=== PATIENT | male | born 1945 | race Caucasian/White ===

== ENCOUNTER 2023-06-15 21:48 | Emergency (ER) | payer MEDICARE, OTHER, SELFPAY ==
[2023-06-15 21:50] VITALS: BP 140/74
[2023-06-15 22:22] VITALS: BP 140/72
[2023-06-15 22:23] VITALS: BMI 42.2
[2023-06-15] MEDS: NSS 1000 IV ×2 (22:24→23:26)
[2023-06-15 22:31] LABS: % Basophils 0.2 % (0-2); % Eosinophils 0.9 % (0-6); % Immature Granulocytes 0.2 % (0-0.5); % Lymphocytes 9.9 % (20.5-51.1); % Monocytes 7.3 % (1.7-9.3); % Neutrophils 81.5 % (42.2-75.2); Absolute Eosinophils 0.1 10^3/uL (0-0.7); Absolute Lymphocytes 0.9 10^3/uL (1.2-3.4); Absolute Monocytes 0.7 10^3/uL (0.1-0.6); Absolute Neutrophils 7.8 10^3/uL (1.4-6.5); Hematocrit 45.8 % (39.0-52.0); Hemoglobin 15.6 g/dL (13.0-18.0); Mean Corp Hgb Conc. 34.1 g/dL (33.0-37.0); Mean Corpuscular Hgb 27.8 pg (27.0-31.0); Mean Corpuscular Volume 81.5 fL (80.0-94.0); Mean Platelet Volume 10.3 fL (7.4-10.4); Nucleated Red Blood Cells % 0 % (-); Platelet Count 186 10^3/uL (130-400); Red Blood Cell Count 5.62 10^6/uL (4.70-6.10); Red Cell Dist. Width 14.6 % (11.5-14.5); White Blood Cell Count 9.5 10^3/uL (4.8-10.8)
[2023-06-15] MEDS: ZOFRAN 4 MG IV (22:34)
[2023-06-15 22:45] LABS: ALT (SGPT) 25 U/L (0-50); AST (SGOT) 26 U/L (17-59); Albumin 3.8 g/dl (3.5-5.0); Alkaline Phosphatase 81 U/L (38-126); Blood Urea Nitrogen 23 mg/dl (9-20); Carbon Dioxide 25 mmol/L (22-30); Chloride 102 mmol/L (98-107); Estimated Creatinine Clearance 88 ml/min; Glucose 117 mg/dl (70-99); Lipase 57 U/L (23-300); Potassium 4.3 mmol/L (3.5-5.1); Sodium 134 mmol/L (135-145); Total Bilirubin 0.6 mg/dl (0.2-1.3); Total Protein 6.3 g/dl (6.3-8.2); eGFR > 60.00
--- NOTE | 2023-06-15 22:45 | ED.GENMED ---
History of Present Illness
<PRAVIN Mac - Last Filed: 06/15/23 23:00>
General
Chief Complaint: Abdominal Pain
Source: patient
Exam Limitations: none
Time Seen by Provider: 06/15/23 22:31
Nursing documentation reviewed up to this point in time: agreed with
Travel History
Have you had any contact with someone who has COVID-19?: No
Do you have any symptoms of coronavirus? Fever > 100 degrees, chills, cough, shortness of breath, sore throat, loss of taste or smell, muscle aches, or headache?: No
History of Present Illness
History of Present Illness:
patient is a 77 y/o male wit H of obesity presenting with abdominal pain x 2 days. patient states the pain is located in the middle of his abdomen with no radiation. Patient states it is a constant dull pain. Patient admits to taking tyloenol and
zofran which did not help. Patient admits to vomiting that has been going on since the abdominal pain. Patient states he has had 3+ episodes of vomiting that were described as dark brown. Patient admits to started zepbound 2 weeks ago with his last
dose on Saturday. patient states he had some constipation throughout the week for which he took miralax for. Patient states he then had diarrhea for a day but has since resolved. Patient admits to mild W[place] since onset of vomiting.Patient denies Cp,
SOB, blood in stool, fever, chills. denies recent alcohol or smoking in last 48 hrs. Patient denies eating since onset of vomiting.
Past History
<PRAVIN Mac - Last Filed: 06/15/23 23:00>
Past History
ED Past Medical History: None
Social History
Personal:
Review of Systems
<PRAVIN Mac - Last Filed: 06/15/23 23:00>
Review of Systems
EENT: Reports no symptoms
Respiratory: Reports no symptoms
Cardiac: Reports no symptoms
ABD/GI: Reports abdominal pain, nausea, vomiting, diarrhea, constipated and anorexia
: Reports no symptoms
Musculoskeletal: Reports no symptoms
Skin: Reports no symptoms
Neurological: Reports headache
Phy Exam
<PRAVIN Mac - Last Filed: 06/15/23 23:00>
General Physical Exam
General Presentation: well appearing and no apparent distress
General Skin: warm and dry
General Habitus: normal
General Mental: alert
General Hydration: appears well hydrated
ENT Exam
ENT Exam: EOMI, pharynx normal, neck supple and normocephalic
Eye Exam
Eye Exam: PERRL, cornea clear and conjunctiva normal
Cardiovascular Exam
Cardiovascular Exam: regular rate/rhythm, no edema, no murmur and normal peripheral pulses
Pulmonary Exam
Pulmonary Exam: lungs clear, no respiratory distress, no rales, no crackles, no rhonchi, no stridor, no wheezing and no cough
Gastrointestinal Exam
Gastrointestinal Exam: normal bowel sounds, non tender, no pulsatile mass and non distended
Neurological Exam
Neurological Exam: alert, oriented x3, no motor deficits and speech normal
Musculoskeletal Exam
Musculoskeletal Exam: full ROM and no edema
Skin Exam
Skin Exam: normal color, warm/dry, no rash and no petechia
Psychiatric Exam
Psychiatric Exam: normal mood/affect
Course
<ST BubbaMN - Last Filed: 06/15/23 23:00>
Orders/Labs/Results
Orders:
Orders
06/15/23 22:14
IV Insert/Care/Rem.- Treatment PRN
Urinalysis Reflex To Culture Urgent
Date Specimen was Collected: 06/15/23
Time Specimen was Collected: 22:14
06/15/23 22:16
Complete Blood Count/With Diff Urgent
Comprehensive Metabolic Panel Urgent
Lipase Urgent
06/15/23 22:24
0.9% Sodium Chloride 1000 ml [Nss] 1,000 ml IV BOLUS
06/15/23 22:27
Ondansetron Injectable [Zofran] 4 mg .ROUTE .STK-MED ONE
06/15/23 22:30
Ondansetron HCl [Zofran] 4 mg PO NOW STA
06/15/23 22:33
Ondansetron Injectable [Zofran] 4 mg IV NOW STA
06/15/23 23:06
HYDROmorphone [Dilaudid] 0.5 mg IV NOW STA
06/15/23 23:07
CT Abd/pelvis W Iv Cont Urgent
Comment:
Reason For Exam: severe periumbilical abd pain x 30 h, N/V/D
06/15/23 23:26
0.9% Sodium Chloride 1000 ml [Nss] 1,000 ml IV BOLUS
06/15/23 23:33
Lactic Acid Urgent
06/16/23 00:10
Ondansetron Injectable [Zofran] 4 mg .ROUTE .STK-MED ONE
06/16/23 00:11
Ondansetron Injectable [Zofran] 4 mg IV NOW STA
06/16/23 00:43
Metoclopramide [Reglan] 10 mg IV NOW STA
06/16/23 01:26
Dicyclomine HCl [Bentyl] 20 mg IM NOW STA
06/16/23 02:50
Ketorolac [Toradol] 30 mg IV NOW STA
Abnormal Lab Results
06/15/23 06/16/23
22:16 01:33
RDW 14.6 H %
(11.5-14.5)
Absolute Neuts (auto) 7.8 H 10^3/uL
(1.4-6.5)
Absolute Lymphs (auto) 0.9 L 10^3/uL
(1.2-3.4)
Absolute Monos (auto) 0.7 H 10^3/uL
(0.1-0.6)
Neutrophils % 81.5 H %
(42.2-75.2)
Lymphocytes % 9.9 L %
(20.5-51.1)
Sodium 134 L mmol/L
(135-145)
BUN 23 H mg/dl
(9-20)
Glucose 117 H mg/dl
(70-99)
Urine Ketones 2+ A
(Negative)
Urine Bilirubin 1+ A
(Negative)
06/15/23 22:16
06/15/23 22:16
Vital Signs
Initial and Last Documented VS:
Initial Vital Signs
Temp Pulse Resp BP Pulse Ox
98.1 F 72 24 140/74 96
06/15/23 21:50 06/15/23 21:50 06/15/23 21:50 06/15/23 21:50 06/15/23 21:50
Last Documented Vital Signs
Temp Pulse Resp BP Pulse Ox
98.1 F 72 24 137/65 97
06/15/23 21:50 06/15/23 21:50 06/15/23 21:50 06/16/23 02:20 06/16/23 02:31
<Sarai Montanez DO - Last Filed: 06/16/23 03:40>
Orders/Labs/Results
Orders:
Orders
06/15/23 22:14
IV Insert/Care/Rem.- Treatment PRN
Urinalysis Reflex To Culture Urgent
Date Specimen was Collected: 06/15/23
Time Specimen was Collected: 22:14
06/15/23 22:16
Complete Blood Count/With Diff Urgent
Comprehensive Metabolic Panel Urgent
Lipase Urgent
06/15/23 22:24
0.9% Sodium Chloride 1000 ml [Nss] 1,000 ml IV BOLUS
06/15/23 22:27
Ondansetron Injectable [Zofran] 4 mg .ROUTE .[employer]-MED ONE
06/15/23 22:30
Ondansetron HCl [Zofran] 4 mg PO NOW STA
06/15/23 22:33
Ondansetron Injectable [Zofran] 4 mg IV NOW STA
06/15/23 23:06
HYDROmorphone [Dilaudid] 0.5 mg IV NOW STA
06/15/23 23:07
CT Abd/pelvis W Iv Cont Urgent
Comment:
Reason For Exam: severe periumbilical abd pain x 30 h, N/V/D
06/15/23 23:26
0.9% Sodium Chloride 1000 ml [Nss] 1,000 ml IV BOLUS
06/15/23 23:33
Lactic Acid Urgent
06/16/23 00:10
Ondansetron Injectable [Zofran] 4 mg .ROUTE .OROS-MED ONE
06/16/23 00:11
Ondansetron Injectable [Zofran] 4 mg IV NOW STA
06/16/23 00:43
Metoclopramide [Reglan] 10 mg IV NOW STA
06/16/23 01:26
Dicyclomine HCl [Bentyl] 20 mg IM NOW STA
06/16/23 02:50
Ketorolac [Toradol] 30 mg IV NOW STA
Abnormal Lab Results
06/15/23 06/16/23
22:16 01:33
RDW 14.6 H %
(11.5-14.5)
Absolute Neuts (auto) 7.8 H 10^3/uL
(1.4-6.5)
Absolute Lymphs (auto) 0.9 L 10^3/uL
(1.2-3.4)
Absolute Monos (auto) 0.7 H 10^3/uL
(0.1-0.6)
Neutrophils % 81.5 H %
(42.2-75.2)
Lymphocytes % 9.9 L %
(20.5-51.1)
Sodium 134 L mmol/L
(135-145)
BUN 23 H mg/dl
(9-20)
Glucose 117 H mg/dl
(70-99)
Urine Ketones 2+ A
(Negative)
Urine Bilirubin 1+ A
(Negative)
06/15/23 22:16
06/15/23 22:16
Vital Signs
Initial and Last Documented VS:
Initial Vital Signs
Temp Pulse Resp BP Pulse Ox
98.1 F 72 24 140/74 96
06/15/23 21:50 06/15/23 21:50 06/15/23 21:50 06/15/23 21:50 06/15/23 21:50
Last Documented Vital Signs
Temp Pulse Resp BP Pulse Ox
98.1 F 72 24 137/65 97
06/15/23 21:50 06/15/23 21:50 06/15/23 21:50 06/16/23 02:20 06/16/23 02:31
<PRAVIN Mac - Last Filed: 06/15/23 23:00>
MDM/Problems Addressed
Differential Diagnosis Includes:
gastroenteritis
medication SE
SBO
MDM/Problems Addressed:
abdominal pain
<PRAVIN Mac - Last Filed: 06/15/23 23:00>
*Critical Care Note
Total Time (30-74mins, 75-104mins- exclusive of procedures): Not Applicable
<Sarai Montanez DO - Last Filed: 06/16/23 03:40>
*Radiology
Radiology exam reviewed: radiology read reviewed
*Pulse Oximetry
Patient hypoxic: no
ED Attending Note
<PRAVIN Mac - Last Filed: 06/15/23 23:00>
-
Portions of this chart may have been created with voice recognition software.� Occasional wrong word or��sound alike� substitutions may have occurred due to the inherent limitations of voice recognition software.
<Sarai Montanez DO - Last Filed: 06/16/23 03:40>
ED Attending Note
Patient seen and examined by attending physician: Yes
I performed the substantive portion of visit, reviewed & personally made and approve the management plan that is documented in note by myself or REGGIE.: Yes
I performed a history and physical exam of patient and discussed management with resident, I reviewed resident's note and agree with documented findings and plan of care.: Yes
ED Attending Note:
This is a 77-year-old gentleman who resides at home alone, independently. He has history of hypertension, BPH, migraine headaches, morbid obesity and remote history of prostate cancer 2016 treated with external beam radiation and 18-month course of
hormonal therapy. Follows with Dr. Dominguez as with undetectable PSAs thus far until more recently in January PSA trended up minimally to 0.17.
2 weeks ago was started on Zepbound for obesity and he administered his second weekly injection on June 09.
He does admit to moderate constipation with initiation of Zepbound and has been taking MiraLAX and fiber supplement with eventual passage of a very large stool 2 days ago.
Yesterday afternoon he developed mid abdominal pain, moderate in nature that has been constant since then. Mid abdominal pain does not radiate, constant, moderate and dull in nature accompanied with significant nausea with 3 episodes of nonbloody
vomitus yesterday and one episode of vomiting today. He passed 3-4 loose nonbloody stools yesterday. No stools today.
He has not had a fever nor chills. No close contacts with similar symptoms. No recent travel nor recent antibiotic use.
No history of similar episodes in the past.
He does have a known right inguinal hernia but denies inguinal pain nor masses.
No back pain or flank pain, no dysuria and urgency nor hematuria. He has had a markedly decreased appetite since yesterday afternoon, he has been taking small sips of water and clear fluid since yesterday afternoon.
He took 1 dose of oral Zofran today, but then vomited shortly after.
His daily medications include: loratidine, nadolol, flomax, as needed sumatriptan.
GENERAL: 77-year-old obese gentleman appears his stated age, awake and alert, pleasant, appears in moderate distress related to pain. 2 of his sisters are accompanying him.
EYE: anicteric
NECK: Supple, nontender, no meningismus, no significant adenopathy.
ENT: oral mucosa is moist. No rhinorrhea.
CARDIAC: Regular rate and rhythm. no murmur.
LUNGS: Clear breath sounds bilaterally, no acute respiratory distress, no wheezes/rales/rhonchi
ABDOMEN: Obese, soft, nondistended, without focal tenderness, no r/g, no palpable masses, no cvat. Mildly hypoactive bowel sounds.
NEUROLOGICAL: Alert and oriented x3, no focal neuro deficits.
SKIN: Warm and dry, normal color, skin intact. No rash.
MUSCULOSKELETAL: No C/C/E. peripheral pulses are full and equal b/l. No palpable tenderness.
PSYCH: Normal and appropriate interaction.
Concern for acute gastroenteritis, small bowel obstruction, ileus, other consideration is ischemic bowel, adverse reaction to Zepbound (GLP1-Ag)
Labs thus far are unremarkable, normal CBC with normal white blood cell count. Unremarkable chemistries, normal LFTs, normal lipase.
Will check lactic acid.
IV fluids have been initiated and patient has been given an IV dose of Zofran. Will give IV Dilaudid for pain, continue IV fluids and will plan for CT abdomen pelvis with IV contrast.
06/16/2023 0336 AM
Patient has had some intermittent return of nausea and mid abdominal pain but has had no vomiting, no diarrhea, remains afebrile.
CT abdomen and pelvis shows small and large bowels to be decompressed likely related to diarrhea and vomiting. Subtle edema adjacent to the duodenum may reflect duodenitis however patient has had no upper abdominal pain. He has been tolerating
sips of water.
Lactic acid is normal.
Nausea has subsided after an IV dose of Reglan and pain has resolved after an IV dose of Toradol.
He has been reevaluated on multiple occasions and for the most part is sleeping upon reevaluation. He continues with some mild soreness but overall admits to feeling markedly improved.
I suspect a gastroenteritis as cause for symptoms, could this be aggravated by current GLP-1 agonist?
Recommend supportive measures, limiting diet to clear liquids today, slowly advancing as tolerated.
A prescription for Reglan has been provided for as needed nausea, small prescription for Toradol for as needed pain. Recommend [id number] Imodium if diarrhea recurs.
Prompt follow-up with PCP for recheck.
Discharge Plan
Departure
Patient Disposition: Home (Routine Discharge)
Date of Disposition: 06/16/23
Time of Disposition: 03:31
Patient with high blood pressure during this ER visit?: No
Condition: Good
Discharge Problem:
Acute gastroenteritis
Instructions: Clear Liquid Diet, Viral Gastroenteritis, Adult (DC)
Prescriptions:
New
metoclopramide HCl [Reglan] 10 mg tablet
10 mg PO Q6H PRN (Reason: nausea and vomiting) Qty: 10 0RF
ketorolac 10 mg tablet
10 mg PO QID PRN (Reason: pain) Qty: 10 0RF
Referrals:
Chloe Kelley DO [Family Provider] - Call in 1-3 days for appt
Activity Restrictions/Additional Instructions:
Limit diet to clear liquids today, slowly advance to soft bland foods there after.
If diarrhea recurs, you can take over the counter Imodium.
If nausea persists, I recommend you hold the next dose of Zepbound.
Follow up with family doctor this week for recheck.
Interventions
Interventions:
*Risk Screen - Suicide Last Done: 06/15/23 21:50
*General Assessment Last Done: 06/15/23 22:23
*Neglect/Abuse Screening Last Done: 06/15/23 21:50
ED- Fall Risk Assessment Last Done: 06/15/23 23:37
*ED COVID-19 Vaccine History Last Done: 06/15/23 22:23
IX-Cipyce-Jrogecfish Assessment Last Done: 06/15/23 23:37
[2023-06-15 23:00] VITALS: BP 94/65
[2023-06-15] MEDS: DILAUDID 0.5 MG IV (23:20)
[2023-06-15 23:22] VITALS: BP 87/70
[2023-06-15 23:33] VITALS: BP 128/57
--- NOTE | 2023-06-15 23:35 | EDRN ---
Patients BP dropped after pain meds, informed Dr. cates and hung some more fluids on patient, repeat BP is much better
[2023-06-15 23:40] VITALS: BP 126/53
[2023-06-16] VITALS (9 sets, daily range): BP systolic 132–149; BP diastolic 55–66
[2023-06-16 00:06] LABS: Lactic Acid 0.8 mmol/L (0.7-2.0)
[2023-06-16] MEDS: ZOFRAN 4 MG IV (00:11)
--- NOTE | 2023-06-16 00:21 | EDRN ---
Patient was complaining of nausea coming back, meds given for this, call boyd in reach, no other complaints
[2023-06-16] MEDS: REGLAN 10 MG IV (00:49)
[2023-06-16] MEDS: BENTYL 20 MG IM (01:41)
[2023-06-16 01:43] LABS: Urine Albumin Trace (Neg - Trace); Urine Bilirubin 1+ (Negative); Urine Character Clear (Clear); Urine Color Yellow; Urine Glucose Negative (Negative); Urine Ketone 2+ (Negative); Urine Leukocyte Negative (Negative); Urine Nitrite Negative (Negative); Urine Occult Blood Negative (Negative); Urine Specific Gravity 1.015 (<1.030); Urine Urobilinogen Negative (Neg - 1+)
[2023-06-16] MEDS: TORADOL 30 MG IV (02:52)
== END 2023-06-16 04:08 | disposition home or self-care (01) ==
LOC: EMR 21:48
PROVIDERS: EMERGENCY PHYSICIAN Emergency Medicine; FAMILY PHYSICIAN Family Medicine
DX: K52.9 Noninfective gastroenteritis and colitis, unspecified (principal); K40.90 Unilateral inguinal hernia, without obstruction or gangrene, not specified as recurrent; I10 Essential (primary) hypertension; N40.0 Benign prostatic hyperplasia without lower urinary tract symptoms; E66.01 Morbid (severe) obesity due to excess calories; Z85.46 Personal history of malignant neoplasm of prostate
CPT/HCPCS: 99284; 96374; 96375 ×3; 96361 ×2; 96372; 96376; 74177; 80053; 81003; 83605; 83690; 85025; Q9967

== ENCOUNTER 2023-06-17 17:20 | Inpatient (IN) | payer MEDICARE, OTHER, SELFPAY ==
[2023-06-16] VITALS (8 sets, daily range): BP systolic 135–156; BP diastolic 59–84; BMI 42.9; BMI 42.0
--- NOTE | 2023-06-16 11:57 | ED.GENMED ---
History of Present Illness
General
Chief Complaint: Abdominal Pain
Source: patient and other (Sisters who are at bedside)
Exam Limitations: none
Time Seen by Provider: 06/16/23 11:34
Travel History
Have you had any contact with someone who has COVID-19?: No
Do you have any symptoms of coronavirus? Fever > 100 degrees, chills, cough, shortness of breath, sore throat, loss of taste or smell, muscle aches, or headache?: No
History of Present Illness
History of Present Illness:
This patient is a 77-year-old male presents emergency department with abdominal pain associate with nausea and vomiting. The patient states that his symptoms started on Saturday at approximately 2 PM. The pain was not abrupt in onset. The pain is
constant, periumbilical, without radiation, exacerbating, relieving factors. He feels very nauseous and did have some vomiting although the last time he vomited was yesterday. He is only able to tolerate small sips of water at this time. He
denies chest pain, back pain, urinary symptoms. He was feeling constipated earlier in the week, took laxatives, and had a bowel movement. Then, Saturday into Saturday at 1 AM, patient had a few episodes of loose stool without black stool or blood.
Patient recently started a GLP-1 agonist, last dose was 6 days ago. He was seen in the emergency department yesterday, and had extensive workup including labs CT etc. He felt better although not fully comfortable upon discharge.
Past History
Past History
ED Past Medical History: Other (BPH, hernia)
Social History
Tobacco: Non-smoker
Alcohol: None
Drug: None
Phy Exam
Physical Exam
Physical Exam:
GENERAL: Alert , appears uncomfortable
EYE: pupils equal and reactive
NECK: Supple, no significant adenopathy.
ENT: o/p clr, mm dry
CARDIAC: Regular rate and rhythm .
LUNGS: Clear breath sounds bilaterally, no acute respiratory distress, no wheezes/rales/rhonchi
ABDOMEN: Soft, without focal tenderness, no r/g, no cvat
NEUROLOGICAL: Alert and oriented, no focal neuro deficits
SKIN: Warm and dry, skin intact.
MUSCULOSKELETAL: No edema, well perfused.
PSYCH: Normal and appropriate interaction.
Course
Orders/Labs/Results
Orders:
Orders
06/16/23 Lunch
Clear Liquid
At Your Request: Full Participation
Does patient need a safe tray?: No
06/16/23 11:56
Cardiac Monitoring- Treatment ONCE
0.9% Sodium Chloride 1000 ml [Nss] 1,000 ml IV BOLUS
HYDROmorphone [Dilaudid] 1 mg IV NOW STA
Ondansetron Injectable [Zofran] 4 mg IV NOW STA
06/16/23 12:09
Complete Blood Count/No Diff Urgent
Comprehensive Metabolic Panel Urgent
Lipase Urgent
Urinalysis Reflex To Culture Urgent
Date Specimen was Collected: 06/16/23
Time Specimen was Collected: 12:01
06/16/23 13:35
EKG [Electrocardiogram (*1)] Routine
Reason for Study: QTc Monitoring
Code Status As Directed
Resuscitation Status: Full Code
Acetaminophen [Tylenol] 650 mg PO Q4HPRN PRN
Ondansetron Injectable [Zofran] 4 mg IV Q6HPRN PRN
Activity As Directed
Activity Level: As Tolerated
Vital Signs As Directed
Frequency: Per unit guidelines
DX Deep Vein Thrombosis Video Routine
06/16/23 13:37
Admit/Transfer Patient As Directed
Co-Sign Provider:
Level of Care: Observation services
Assign to:: Medical/Surgical
Physician / Group: Logan Ann
Diagnosis: Intractable nausea/vomiting
06/16/23 13:45
0.9% Sodium Chloride 1000 ml [Nss] 1,000 ml IV 125 mls/hr
06/16/23 18:00
Enoxaparin Sodium [Lovenox] 40 mg SC QPM
06/17/23 06:52
Basic Metabolic Panel IN AM
Complete Blood Count/No Diff IN AM
Lipase IN AM
Abnormal Lab Results
06/16/23
12:09
WBC 11.3 H 10^3/uL
(4.8-10.8)
RDW 14.7 H %
(11.5-14.5)
MPV 10.6 H fL
(7.4-10.4)
BUN 25 H mg/dl
(9-20)
Glucose 116 H mg/dl
(70-99)
Total Protein 5.8 L g/dl
(6.3-8.2)
Lipase 588 H U/L
(23-300)
Urine Ketones 2+ A
(Negative)
Urine Bilirubin 1+ A
(Negative)
06/16/23 12:09
06/16/23 12:09
Vital Signs
Initial and Last Documented VS:
Initial Vital Signs
Temp Pulse Resp BP Pulse Ox
98.0 F 60 17 156/84 95
06/16/23 11:07 06/16/23 11:07 06/16/23 11:07 06/16/23 11:07 06/16/23 11:07
Last Documented Vital Signs
Temp Pulse Resp BP Pulse Ox
98.3 F 60 18 133/60 97
06/17/23 15:00 06/17/23 15:00 06/17/23 15:00 06/17/23 15:00 06/17/23 15:00
*Critical Care Note
Total Time (30-74mins, 75-104mins- exclusive of procedures): Not Applicable
Update Note
Update Note:
Patient presents to the Emergency Department with ___abdominal pain nausea and vomiting
Number and Complexity of Problems Addressed at the Encounter
� Chronic conditions affecting care:
� Acute Exacerbation and/or Progression of Chronic Illness:
� Differential Diagnosis includes: But not limited to medication side effect, gastroenteritis, bowel obstruction, etc. etc.
Amount and/or Complexity of Data to be Reviewed and Analyzed
� I performed an independent evaluation of and my interpretation is:
EKG:
CT:
Xrays:
Laboratory Studies: Slight elevation of lipase, dehydration
Other:
� Review of other/old records reveals: CAT scan from yesterday as well as ER chart labs etc. reviewed
� Clinical information was obtained by an independent historian: Sisters who are at bedside
� Prescriptions/Medications Considered but not given:
� Further testing considered but not performed:
Risk of Complications and/or Morbidity or Mortality of Patient Management
� Social determinants of health affecting care:
� Discussion with other providers (PCP, Hospitalists, Consultants, etc):
� Escalation of care including admission/observation vs risk of discharge considered: CT scan from yesterday generally unremarkable and may be consistent with gastroenteritis. No signs of obstruction, acute infection, etc.
On reassessment patient's pain is improved markedly but still present, abdomen nontender. He still feels anorexic, feels that nausea is improved, no active vomiting. Patient's lipase has increased slightly since previous measurement. Strongly
suspect symptoms related to GLP-1 agonist versus gastroenteritis. Dehydration noted. Will d/w hopsitliast.
ED Attending Note
-
Portions of this chart may have been created with voice recognition software.� Occasional wrong word or��sound alike� substitutions may have occurred due to the inherent limitations of voice recognition software.
Discharge Plan
Departure
Patient Disposition: Admit
Date of Disposition: 06/16/23
Time of Disposition: 13:41
Admit to: Med/Surg
Presentation/result/management discussed w/ accepting MD/DO: Hospitalist
Condition: Good
Discharge Problem:
Abdominal pain
Interventions
Interventions:
*Risk Screen - Suicide Last Done: 06/16/23 15:28
*General Assessment Last Done: 06/16/23 12:25
*Neglect/Abuse Screening Last Done: 06/16/23 12:25
ED- Fall Risk Assessment Last Done: 06/16/23 12:25
*ED COVID-19 Vaccine History Last Done: 06/16/23 15:28
*Nursing Disposition Last Done: 06/16/23 15:10
GR-Ajlukc-Cebhahepan Assessment Last Done: 06/16/23 12:25
Discharge Date and Time
Discharge Date/Time: 06/16/23 15:10
[2023-06-16] MEDS: DILAUDID 1 MG IV (12:16)
[2023-06-16] MEDS: NSS 1000 IV ×3 (12:16→23:32)
[2023-06-16] MEDS: ZOFRAN 4 MG IV ×2 (12:16→18:20)
[2023-06-16 12:31] LABS: Hematocrit 45.8 % (39.0-52.0); Hemoglobin 15.4 g/dL (13.0-18.0); Mean Corp Hgb Conc. 33.6 g/dL (33.0-37.0); Mean Corpuscular Hgb 27.7 pg (27.0-31.0); Mean Corpuscular Volume 82.4 fL (80.0-94.0); Mean Platelet Volume 10.6 fL (7.4-10.4); Platelet Count 171 10^3/uL (130-400); Red Blood Cell Count 5.56 10^6/uL (4.70-6.10); Red Cell Dist. Width 14.7 % (11.5-14.5); White Blood Cell Count 11.3 10^3/uL (4.8-10.8)
[2023-06-16 12:37] LABS: Urine Albumin Trace (Neg - Trace); Urine Bilirubin 1+ (Negative); Urine Character Clear (Clear); Urine Color Yellow; Urine Glucose Negative (Negative); Urine Ketone 2+ (Negative); Urine Leukocyte Negative (Negative); Urine Nitrite Negative (Negative); Urine Occult Blood Negative (Negative); Urine Specific Gravity 1.025 (<1.030); Urine Urobilinogen Negative (Neg - 1+)
[2023-06-16 12:47] LABS: ALT (SGPT) 25 U/L (0-50); AST (SGOT) 24 U/L (17-59); Albumin 3.5 g/dl (3.5-5.0); Alkaline Phosphatase 71 U/L (38-126); Blood Urea Nitrogen 25 mg/dl (9-20); Calcium 8.8 mg/dl (8.4-10.2); Carbon Dioxide 25 mmol/L (22-30); Chloride 104 mmol/L (98-107); Glucose 116 mg/dl (70-99); Lipase 588 U/L (23-300); Potassium 4.1 mmol/L (3.5-5.1); Sodium 135 mmol/L (135-145); Total Bilirubin 0.5 mg/dl (0.2-1.3); Total Protein 5.8 g/dl (6.3-8.2); eGFR > 60.00
--- NOTE | 2023-06-16 13:19 | EDRN ---
Dr. Silver informed of elevated lipase (not elevated, normal, yesterday).
--- NOTE | 2023-06-16 13:22 | EDRN ---
Dr Silver in to see pt and informed me pt to be admitted and okay for him to have some ice.
--- NOTE | 2023-06-16 13:28 | EDRN ---
Pt administered small cup of ice w/ spoon and advised to be sparing w/ it depending on how he feels.
--- NOTE | 2023-06-16 13:38 | HPS.HSE ---
Family Physician
-
Family Physician: Chloe Kelley
Chief Complaint
-
Abdominal pain nausea vomiting
History of Present Illness
Patient is a 77-year-old male with no significant past medical history came to ER with new onset of abdominal pain nausea and vomiting. Symptoms were rapid onset on Saturday night with patient having diffuse abdominal pain and bilious vomiting.
Patient came to ER yesterday and CT abdomen pelvis and lab work all was essentially normal. Patient was discharged home on symptomatic care, unfortunately patient symptoms persisted and came back to ER for reevaluation. Repeat laboratory
evaluation today showing patient having lipase elevation suggestive of possible mild pancreatitis. Patient having significant abdominal discomfort requiring to be given IV Dilaudid in ER. Patient also have some complaint of ongoing diarrhea
although last bowel movement was Saturday night. Denies of having any fever or chills
Of note patient had been started on GLP-1 agonist ([place]?) for weight loss and had 2 doses so far. Patient last dose was on Saturday morning this week.
Denies of having any other problems of chest pain/cough/dizziness/syncope/palpitation/dysuria.
Medical History
Past Medical History
Past Medical History: Reports None
Additional Past Medical History:
Obesity
Past Surgical History: Reports None
Social History
Tobacco: Non-smoker
Alcohol: None
Drug: None
Personal:
Living: With Family
Family History
Family History: Not pertinent
Allergies / Home Medications
Allergies reflects when Allergies were last updated in [facility].
Home Medications with original date entered in [facility]
Allergy/Medication List:
Allergies
Allergy/AdvReac Type Severity Reaction Status Date / Time
No Known Allergies Allergy Verified 06/16/23 11:07
Home Medications
ketorolac 10 mg tablet 10 mg PO QID PRN pain #10 tabs 06/16/23
metoclopramide HCl 10 mg tablet (Reglan) 10 mg PO Q6H PRN nausea and vomiting #10 tabs 06/16/23
Review of Systems
-
A 12 point ROS was completed and negative except as noted: Yes
Physical Exam
Vital Signs
Vital Signs
Temp Pulse Resp BP Pulse Ox
98.0 F 68 16 135/64 95
06/16/23 11:07 06/16/23 12:45 06/16/23 12:45 06/16/23 12:22 06/16/23 11:07
Physical Exam
General: Appears in Distress, Pain and Obese
HEENT: Atraumatic; No Oxygen
Respiratory: Clear
Cardiac: S1/S2 and Regular Rhythm; No Murmur or Rub
GI: Soft, Non Distended, Normal Bowel Sounds and Tender (Diffuse all over abdomen); No Organomegaly
Musculoskeletal: No Clubbing, No Cyanosis and No Edema
Skin: No Rash
Neuro: Awake, Alert, Oriented and Nonfocal/grossly intact
Laboratory Results
-
06/16/23 12:09
06/16/23 12:09
Laboratory Results
Total Bilirubin 0.5 mg/dl (0.2-1.3) 06/16/23 12:09
AST 24 U/L (17-59) 06/16/23 12:09
ALT 25 U/L (0-50) 06/16/23 12:09
Alkaline Phosphatase 71 U/L (38-126) 06/16/23 12:09
Lipase 588 U/L (23-300) H 06/16/23 12:09
Data Reviewed
-
CT Scan: Image Personally Visualized and interpreted, Report Reviewed by me, Discussed with Patient and Discussed with Family
Lab Data: Labs Reviewed by me and Discussed with Patient
Impression/Plan
-
1. Acute pancreatitis -mild episode
Intractable nausea and vomiting
-Patient intractable nausea and vomiting starting from Saturday night.
-Lipase elevated to 588
-CT abdomen pelvis done in ER on yesterday ER visit did not show any acute abnormality
-Patient has been started on GLP-1 agonist-got second dose on Saturday earlier in the week
-Suspecting component pancreatitis from GLP-1 agonist
-Maintain patient on IVF/pain medication/antiemetic
-Clear liquid ordered for today
-Repeat lipase ordered to be checked in the morning
2. Morbid obesity
-Patient started taking GLP-1 agonist for weight loss
3. Leukocytosis
-reactive in nature. monitor
4. Diarrhea
-Episode on Saturday night, continue monitoring
-Likely from above-mentioned issues, if further episodes occurs will require stool test
DVT prophylaxis -Lovenox
Full code
Total time spent : 76 mins
I personally saw and examined the patient.
I have reviewed all diagnostic interpretations and treatment plans as written.
Time includes patient management by me, time spent at the patients bedside, time to review lab and imaging results, discussing patient care, documentation in the medical record, and time spent with the family or caregiver and discussing care plan
with RN/Consultants.
[2023-06-16] MEDS: DILAUDID 0.5 MG IV ×2 (14:45→19:10)
--- NOTE | 2023-06-16 15:45 | PTCARENOTE ---
Received pt from ER.Pt awake,alert and oriented x3. Pt c/o mid epigastric pain, medicated with Dilaudid prior to arrival to floor. Pt still c/o 7/10 pain , spoke with MD orders for IV Toradol, medicated per orders. Pt VSS 95% on RA.Pt oriented to
room, call boyd within reach, plan of care ongoing.
[2023-06-16] MEDS: TORADOL 15 MG IV (15:58)
[2023-06-16] MEDS: LOVENOX 40 MG SC (18:20)
[2023-06-16] MEDS: FLOMAX 0.800000000000000044 MG PO (19:40)
[2023-06-16] MEDS: PEPCID 20 MG PO (21:22)
[2023-06-16] MEDS: CORGARD PO (23:17)
--- NOTE | 2023-06-16 23:28 | PTCARENOTE ---
Pts HR ranging from 51-57 on pulse ox BP at 2130 149/59 HR 53 repeated BP at 2312 151/75 HR 51. House BREEDING TECHNICIAN notified order to hold nadolol dose and recheck HR at 0300.
[2023-06-17] MEDS: DILAUDID 0.5 MG IV ×2 (00:31→15:10)
[2023-06-17] MEDS: ZOFRAN 4 MG IV ×2 (01:35→16:05)
[2023-06-17] MEDS: NSS 1000 IV ×3 (06:02→22:12)
[2023-06-17 07:00] VITALS: BP 138/66
[2023-06-17 07:21] LABS: Hematocrit 44.9 % (39.0-52.0); Hemoglobin 14.8 g/dL (13.0-18.0); Mean Corpuscular Hgb 27.6 pg (27.0-31.0); Mean Corpuscular Volume 83.6 fL (80.0-94.0); Mean Platelet Volume 10.8 fL (7.4-10.4); Platelet Count 145 10^3/uL (130-400); Red Blood Cell Count 5.37 10^6/uL (4.70-6.10); White Blood Cell Count 10.4 10^3/uL (4.8-10.8)
[2023-06-17 07:51] LABS: Blood Urea Nitrogen 19 mg/dl (9-20); Calcium 8.2 mg/dl (8.4-10.2); Carbon Dioxide 20 mmol/L (22-30); Chloride 112 mmol/L (98-107); Estimated Creatinine Clearance > 125 ml/min; Glucose 99 mg/dl (70-99); Lipase 65 U/L (23-300); Potassium 4.2 mmol/L (3.5-5.1); Sodium 135 mmol/L (135-145); eGFR > 60.00
--- NOTE | 2023-06-17 08:32 | W.PN.HOSP.TC ---
Today's Communication/Plan
-
Will plan to advance diet tomorrow
Please see below
Assessment / Plan
Assessment / Plan
Physical Exam
General: Not in acute distress
HEENT: Atraumatic
Respiratory: Clear
Cardiac: S1/S2 and Regular Rhythm
GI: Soft, Non Distended, Normal Bowel Sounds. Mild tenderness in central abdomen.
Musculoskeletal: No Cyanosis and No Edema
Skin: Warm. Dry.
Neuro: Awake, Alert, Oriented and Nonfocal/grossly intact

CT Abd/Pelvis with IV contrast (as per radiologist's report):
IMPRESSION:
1. No definite acute process. No free air or free fluid.
2. Decompressed bowel likely related to diarrhea and vomiting. No focal area of abnormality. No obstruction. Subtle edema adjacent to the duodenum may represent mild inflammation. Please correlate with laboratory values.
3. Appendix within normal limits.
4. Large right inguinal hernia containing loops of nonobstructed bowel.
5. Nonobstructed 3 mm calcification in the right kidney.

Assessment/Plan
Periumbilical pain
Intractable N/V
Constipation/Diarrhea
Mildly elevated Lipase (possibly secondary to Zepbound), resolved
�� � Intractable nausea and vomiting
-Patient intractable nausea and vomiting starting from 06/14/23 night.
-Lipase elevated to 588
-CT abdomen pelvis done in ER on ER Visit 06/15/23 did not show any acute abnormality
-Patient has been started on GLP-1 agonist-got second dose on ~6 days prior to presentation
-Suspecting component pancreatitis from GLP-1 agonist
-Maintain patient on IVF/pain medication/antiemetic
-Clear liquid diet
-GI consulted, recommendations appreciated
-Repeat lipase down to normal range
-Patient instructed to follow-up with primary GI at [facility] upon discharge if with further issues.
#Morbid obesity
-Patient started taking GLP-1 agonist for weight loss
#Leukocytosis
-reactive in nature. monitor
#Diarrhea
-Episode on Saturday night, continue monitoring
-Likely from above-mentioned issues, if further episodes occurs will require stool test
DVT prophylaxis -Lovenox
Full code
Anticipated Discharge: 24 - 48 hours
Subjective/Interval History
-
Date of Service: June 17, 2023
Patient was seen and examined. He denied abdominal pain, nausea, vomiting or any other complaints. He reported that he is doing better.
Objective Data
-
Labs:
Laboratory Results
06/17/23
06:52
WBC 10.4
Hgb 14.8
Hct 44.9
Plt Count 145
Sodium 135
Potassium 4.2
Chloride 112 H
Carbon Dioxide 20 L
BUN 19
Creatinine 0.7
Glucose 99
Calcium 8.2 L
Vital Signs:
Vital Signs
Temp Pulse Resp BP Pulse Ox
98 F 64 18 138/66 97
06/17/23 07:00 06/17/23 07:00 06/17/23 07:00 06/17/23 07:00 06/17/23 07:00
I&O
06/16/23 06/17/23 06/18/23
06:59 06:59 06:59
Intake Total 1500 / 1500
Output Total 400 / 400
Balance 1100 / 1100
--- NOTE | 2023-06-17 10:51 | CON.GI ---
Addendum entered and electronically signed by Trini Bañuelos MD 06/17/23 15:42:
I saw and examined the patient.
The AEROSOL SUPERVISOR's note was reviewed and I agree with the note.
Impression/Plan:
Abdominal pain/ N/V/ diarrhea -patient was recently started on Zepbound for weight loss. Likely GI adverse reaction from medication
Mildly elevated Lipase, resolved
CT Abd/Pelvis with IV contrast:
IMPRESSION:
1. � No definite acute process. No free air or free fluid.
2. � Decompressed bowel likely related to diarrhea and vomiting. No focal area of abnormality. No obstruction. Subtle edema adjacent to the duodenum may represent mild inflammation. Please correlate with laboratory values.
3. � Appendix within normal limits.
4. � Large right inguinal hernia containing loops of nonobstructed bowel.
5. � Nonobstructed 3 mm calcification in the right kidney.
plan
-Clear liquid diet
- hold zepbound
- antiemetics PRN
- pain mx as per medical team
- PPI
-Patient instructed to follow-up with primary GI at [facility] upon discharge if with further issues.
Original Note:
Consultation
-
Date/Time Consultation Requested: 06/16/33 0834
Date/Time Consultation Performed: 06/16/33 1000
Requesting Provider: Dr. Watkins
Performing Provider: Dr. Bañuelos/TAMMY Robles
Reason for Consultation: N/V/D, abd pain
Medical History
Chief Complaint / HPI
Chief Complaint: abd pain
History of Present Illness:
77-year-old male with past medical history of obesity, BPH, GERD and hypertension who was recently started on Zepbound 2 weeks ago by his PCP for weight loss presents to the emergency room with nausea, vomiting, diarrhea and abdominal pain. Asked
to evaluate for the same. The patient states that he took his first injection on 06/03/2023. He states that at that time he developed periumbilical abdominal discomfort with an aching. This occurred within 24 hours postinjection. He stopped
eating as much and every day there after it became less. He took his second injection on 06/10/2023 and he had worse symptoms associated with constipation. He started using MiraLAX then by Saturday he started having worsening pain, vomiting and
diarrhea. He came to the emergency room on 06/15/2023 and had labs performed. He had normal LFTs. Normal lipase. He had a CT of the abdomen and pelvis at that time that showed no definite acute process. Decompressed bowel likely related to
diarrhea and vomiting. No focal area of abnormality. No obstruction. Subtle edema adjacent to the duodenum may represent mild inflammation. Appendix within normal limits. Large right inguinal hernia containing loops of nonobstructed bowel.
Nonobstructive 3 mm calcification in the right kidney. The patient was given IV fluids, antiemetics in the form of Zofran Reglan as well as given Bentyl and Toradol. He was discharged to follow-up with his PCP. Because of ongoing symptoms the
patient represented to the emergency department the following day. This time he had a mild leukocytosis of 11.3. This is now 10.4, hemoglobin was 15.4 is now 14.8, platelets are 145 this morning. Sodium is 135, potassium 4.2, BUN 19, creatinine
0.7, glucose 99, calcium 8.2, total bilirubin 0.5, AST 24, ALT 25, alk phos 71, lipase currently 65 down from 588. Patient states that he has not had any further vomiting or diarrhea. His last bowel movement was on Saturday. 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 He is tolerating ice chips. The patient quit smoking 40 years ago. He does not drink any alcohol. He uses Aleve as needed which is very infrequent. His bowel habits prior to this are usually soft formed and
daily. The patient denies any fevers, chills, melena, hematochezia, dysphagia or dyne aphasia. He denies any early satiety or unintentional weight loss. He denies any acholic stools or bilirubinuria.
Past Medical History
Past Medical History: GERD, HTN and Other (BPH)
Past Surgical History: None
Social History
Tobacco: Former Smoker
Alcohol: None
Drug: None
Family History
Family History: Other (No family history of gastrointestinal malignancy or IBD)
Allergies / Home Medications
Allergy/AdvReac Type Severity Reaction Status Date / Time
No Known Allergies Allergy Verified 06/16/23 11:07
Medication Instructions Recorded
docusate sodium 100 mg tablet 100 mg PO HS Constipation 06/16/23
(Stool Softener)
famotidine 20 mg tablet (Pepcid AC) 20 mg PO HS Gastrointestinal Issue 06/16/23
loratadine 10 mg tablet (Claritin) 10 mg PO DAILY Allergies 06/16/23
nadolol 80 mg tablet 80 mg PO HS Blood Pressure 06/16/23
sumatriptan succinate 50 mg tablet 50 mg PO ONCE PRN migraine 06/16/23
tamsulosin 0.4 mg capsule (Flomax) 0.8 mg PO HS Urinary Issue 06/16/23
Review of Systems
-
All other systems: A 12 pt ROS was Negative except as stated above in HPI
Vital Signs
Temp Pulse Resp BP Pulse Ox
98 F 64 18 138/66 97
06/17/23 07:00 06/17/23 07:00 06/17/23 07:00 06/17/23 07:00 06/17/23 07:00
Physical Exam
Exam
General: No Apparent Distress
HEENT: Normocephalic
Respiratory: Clear (Anterior)
Cardiac: Regular Rhythm
GI: Soft, Non Distended, Normal Bowel Sounds and Tender (Mild periumbilical tenderness)
Musculoskeletal: No Edema
Skin: Warm and Dry
Neuro: AO x 3
Results
WBC 10.4 10^3/uL (4.8-10.8) 06/17/23 06:52
Hgb 14.8 g/dL (13.0-18.0) 06/17/23 06:52
Hct 44.9 % (39.0-52.0) 06/17/23 06:52
MCV 83.6 fL (80.0-94.0) 06/17/23 06:52
Plt Count 145 10^3/uL (130-400) 06/17/23 06:52
Sodium 135 mmol/L (135-145) 06/17/23 06:52
Potassium 4.2 mmol/L (3.5-5.1) 06/17/23 06:52
Chloride 112 mmol/L (98-107) H 06/17/23 06:52
Carbon Dioxide 20 mmol/L (22-30) L 06/17/23 06:52
BUN 19 mg/dl (9-20) 06/17/23 06:52
Creatinine 0.7 mg/dL (0.7-1.3) 06/17/23 06:52
Calcium 8.2 mg/dl (8.4-10.2) L 06/17/23 06:52
Total Bilirubin 0.5 mg/dl (0.2-1.3) 06/16/23 12:09
AST 24 U/L (17-59) 06/16/23 12:09
ALT 25 U/L (0-50) 06/16/23 12:09
Alkaline Phosphatase 71 U/L (38-126) 06/16/23 12:09
Lipase 65 U/L (23-300) 06/17/23 06:52
Diagnostic Image Results:
CT Abd/Pelvis with IV contrast:
IMPRESSION:
1. � No definite acute process. No free air or free fluid.
2. � Decompressed bowel likely related to diarrhea and vomiting. No focal area of abnormality. No obstruction. Subtle edema adjacent to the duodenum may represent mild inflammation. Please correlate with laboratory values.
3. � Appendix within normal limits.
4. � Large right inguinal hernia containing loops of nonobstructed bowel.
5. � Nonobstructed 3 mm calcification in the right kidney.
This report agrees with the report provided by [facility].
Electronically signed by Aletha Zuniga MD 06/16/2023 9:27 AM
Prior GI Procedures:
EGD: Never had
Colonoscopy: GI at [facility]. Patient states this was performed a couple years ago. He states this was within normal limits and was told to have a repeat in 10 years.
Assessment / Plan
-
77-year-old male with past medical history of obesity, BPH, GERD and hypertension who was recently started on Zepbound 2 weeks ago by his PCP for weight loss presents to the emergency room with nausea, vomiting, diarrhea and abdominal pain. Asked
to evaluate for the same. He came to the emergency room on 06/15/2023 and had labs performed. He had normal LFTs. Normal lipase. He had a CT of the abdomen and pelvis at that time that showed no definite acute process. Decompressed bowel likely
related to diarrhea and vomiting. No focal area of abnormality. No obstruction. Subtle edema adjacent to the duodenum may represent mild inflammation. Appendix within normal limits. Large right inguinal hernia containing loops of nonobstructed
bowel. Nonobstructive 3 mm calcification in the right kidney. The patient was given IV fluids, antiemetics in the form of Zofran Reglan as well as given Bentyl and Toradol. He was discharged to follow-up with his PCP. Because of ongoing symptoms
the patient represented to the emergency department the following day. This time he had a mild leukocytosis of 11.3. This is now 10.4, hemoglobin was 15.4 is now 14.8, platelets are 145 this morning. Sodium is 135, potassium 4.2, BUN 19,
creatinine 0.7, glucose 99, calcium 8.2, total bilirubin 0.5, AST 24, ALT 25, alk phos 71, lipase currently 65 down from 588. Patient states that he has not had any further vomiting or diarrhea. His last bowel movement was on Saturday. 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 He is tolerating ice chips.
Impression/Plan:
Periumbilical pain
N/V
Constipation/Diarrhea
Mildly elevated Lipase, resolved-> cold have been secondary to vomiting or Zepbound
--> All symptoms correlate to timing of initiation of Zepbound. They would also increase and decrease at the times of redosing/wearing off.
-At this point would recommend discontinuing this medication and follow-up with PCP
-Can trial sips of clears
-Continue famotidine
-Patient instructed to follow-up with primary GI at [facility] upon discharge if with further issues.
Data Reviewed
-
CT Scan: Report Reviewed by me
-
-
Thank you for consultation and allowing me to participate in the patient's care. Please call the insulation helper GI physician during the after hours with any questions or concerns.
--- NOTE | 2023-06-17 11:45 | CM ---
Addendum entered by Jade White 06/17/23 11:56:
Pt is also here as observation, QUIROZ letter explained and copy provided
Original Note:
CM following re: d/c planning
Chart reviewed
Cm met with patient at bedside; IA completed
Pt states he resides alone in a 2SH with 1STE
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
Pt reports no previous VN/SNF hx and the only DME owned is a shower chair
Pt has prescription coverage and rx's are filled at [facility]
Pt PCP-Chloe Kelley
No needs are anticipated once patient is stable
CM will continue to follow patient progress and assist with any needs at d/c as indicated
PLAN; d/c home no needs anticipated
[2023-06-17 15:00] VITALS: BP 133/60
[2023-06-17] MEDS: PROTONIX IV 40 MG IV (16:07)
[2023-06-17] MEDS: NSS (PRESERVATIVE FREE) 10 ML IV (16:07)
[2023-06-17] MEDS: LOVENOX 40 MG SC (17:47)
[2023-06-17] MEDS: CORGARD 80 MG PO (20:19)
[2023-06-17 20:20] VITALS: BP 141/70
[2023-06-17] MEDS: FLOMAX 0.800000000000000044 MG PO (20:21)
[2023-06-17] MEDS: PEPCID 20 MG PO (20:21)
[2023-06-17 23:00] VITALS: BP 124/74
[2023-06-18] MEDS: ZOFRAN 4 MG IV ×3 (01:00→19:24)
[2023-06-18] MEDS: DILAUDID 0.5 MG IV ×2 (01:01→05:07)
[2023-06-18] MEDS: NSS 1000 IV ×2 (07:33→17:20)
[2023-06-18 07:49] VITALS: BP 127/71
[2023-06-18] MEDS: PROTONIX IV 40 MG IV (08:30)
[2023-06-18] MEDS: NSS (PRESERVATIVE FREE) 10 ML IV (08:30)
[2023-06-18 11:23] LABS: Hematocrit 43.4 % (39.0-52.0); Hemoglobin 14.1 g/dL (13.0-18.0); Mean Corp Hgb Conc. 32.5 g/dL (33.0-37.0); Mean Corpuscular Hgb 27.6 pg (27.0-31.0); Mean Corpuscular Volume 85.1 fL (80.0-94.0); Platelet Count 143 10^3/uL (130-400); Red Cell Dist. Width 14.9 % (11.5-14.5); White Blood Cell Count 8.8 10^3/uL (4.8-10.8)
[2023-06-18 11:51] LABS: ALT (SGPT) 25 U/L (0-50); AST (SGOT) 27 U/L (17-59); Albumin 2.9 g/dl (3.5-5.0); Alkaline Phosphatase 53 U/L (38-126); Blood Urea Nitrogen 16 mg/dl (9-20); Calcium 8.6 mg/dl (8.4-10.2); Carbon Dioxide 25 mmol/L (22-30); Chloride 108 mmol/L (98-107); Estimated Creatinine Clearance > 125 ml/min; Glucose 92 mg/dl (70-99); Potassium 4.5 mmol/L (3.5-5.1); Sodium 134 mmol/L (135-145); Total Bilirubin 0.7 mg/dl (0.2-1.3); Total Protein 5.2 g/dl (6.3-8.2); eGFR > 60.00
--- NOTE | 2023-06-18 14:25 | W.PN.GI.CBS2 ---
Today's Communication / Plan
-
ok for diet, ok for d/c if tolerates
Assessment / Plan
-
77-year-old male with past medical history of obesity, BPH, GERD and hypertension who was recently started on Zepbound 2 weeks ago by his PCP for weight loss presents to the emergency room with nausea, vomiting, diarrhea and abdominal pain. Asked
to evaluate for the same. He came to the emergency room on 06/15/2023 and had labs performed. He had normal LFTs. Normal lipase. He had a CT of the abdomen and pelvis at that time that showed no definite acute process. Decompressed bowel likely
related to diarrhea and vomiting. No focal area of abnormality. No obstruction. Subtle edema adjacent to the duodenum may represent mild inflammation. Appendix within normal limits. Large right inguinal hernia containing loops of nonobstructed
bowel. Nonobstructive 3 mm calcification in the right kidney. The patient was given IV fluids, antiemetics in the form of Zofran Reglan as well as given Bentyl and Toradol. He was discharged to follow-up with his PCP. Because of ongoing symptoms
the patient represented to the emergency department the following day. This time he had a mild leukocytosis of 11.3. This is now 10.4, hemoglobin was 15.4 is now 14.8, platelets are 145 this morning. Sodium is 135, potassium 4.2, BUN 19,
creatinine 0.7, glucose 99, calcium 8.2, total bilirubin 0.5, AST 24, ALT 25, alk phos 71, lipase currently 65 down from 588. Patient states that he has not had any further vomiting or diarrhea. His last bowel movement was on Saturday. 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 He is tolerating ice chips.
Pt's nausea has improved, denies vomiting, will have diet today. Ok to d/c home from GI standpoint if he tolerates diet. GI will s/o.
Total Time Spent with Patient (in minutes): 35
Subjective
Subjective
Date of Service: June 18, 2023
nausea feels better, denies vomiting
Objective
Data Reviewed
Laboratory Data:
Laboratory Results
06/18/23 10:45
06/18/23 10:45
Laboratory Results
Total Bilirubin 0.7 mg/dl (0.2-1.3) 06/18/23 10:45
AST 27 U/L (17-59) 06/18/23 10:45
ALT 25 U/L (0-50) 06/18/23 10:45
Alkaline Phosphatase 53 U/L (38-126) 06/18/23 10:45
Lipase 65 U/L (23-300) 06/17/23 06:52
Vital Signs and I&O:
Vital Signs
Temp Pulse Resp BP Pulse Ox
98.0 F 68 16 127/71 94
06/18/23 07:49 06/18/23 07:49 06/18/23 07:49 06/18/23 07:49 06/18/23 08:00
I&O
06/17/23 06/18/23 06/19/23
06:59 06:59 06:59
Intake Total 1500 / 1500 780 / 780
Output Total 400 / 400 600 / 600 100 / 100
Balance 1100 / 1100 180 / 180 -100 / -100
[2023-06-18 15:08] VITALS: BP 140/67
--- NOTE | 2023-06-18 16:33 | W.PN.HOSP.TC ---
Today's Communication/Plan
-
Still not tolerating diet
Will continue to monitor over the next ~24 hours
Assessment / Plan
Assessment / Plan
Physical Exam
General: Not in acute distress
HEENT: Atraumatic
Respiratory: Clear
Cardiac: S1/S2 and Regular Rhythm
GI: Soft, Non Distended, Normal Bowel Sounds. Mild tenderness in central abdomen.
Musculoskeletal: No Cyanosis and No Edema
Skin: Warm. Dry.
Neuro: Awake, Alert, Oriented and Nonfocal/grossly intact

CT Abd/Pelvis with IV contrast (as per radiologist's report):
IMPRESSION:
1. No definite acute process. No free air or free fluid.
2. Decompressed bowel likely related to diarrhea and vomiting. No focal area of abnormality. No obstruction. Subtle edema adjacent to the duodenum may represent mild inflammation. Please correlate with laboratory values.
3. Appendix within normal limits.
4. Large right inguinal hernia containing loops of nonobstructed bowel.
5. Nonobstructed 3 mm calcification in the right kidney.

Assessment/Plan
Periumbilical pain
Intractable N/V
Constipation/Diarrhea
Mildly elevated Lipase (possibly secondary to Zepbound), resolved
�� � Intractable nausea and vomiting
-Patient intractable nausea and vomiting starting from 06/14/23 night.
-Lipase elevated to 588
-CT abdomen pelvis done in ER on ER Visit 06/15/23 did not show any acute abnormality
-Patient has been started on GLP-1 agonist-got second dose on ~6 days prior to presentation
-Suspecting component pancreatitis from GLP-1 agonist
-Maintain patient on IVF/pain medication/antiemetic
-Diet advanced to low fat, low residue
-GI consulted, recommendations appreciated
-Repeat lipase down to normal range
-Patient instructed to follow-up with primary GI at [facility] upon discharge if with further issues.
#Morbid obesity
-Patient started taking GLP-1 agonist for weight loss
#Leukocytosis
-reactive in nature. monitor
#Diarrhea
-Episode on Saturday night, continue monitoring
-Likely from above-mentioned issues, if further episodes occurs will require stool test
DVT prophylaxis -Lovenox
Full code
Anticipated Discharge: 24 - 48 hours
Subjective/Interval History
-
Date of Service: June 18, 2023
Patient was seen and examined. He reported feeling okay, he wasn't really able to tolerate his diet and Zofran, as per patient's nurse.
Objective Data
-
Labs:
Laboratory Results
06/18/23
10:45
WBC 8.8
Hgb 14.1
Hct 43.4
Plt Count 143
Sodium 134 L
Potassium 4.5
Chloride 108 H
Carbon Dioxide 25
BUN 16
Creatinine 0.7
Glucose 92
Calcium 8.6
Total Bilirubin 0.7
AST 27
ALT 25
Alkaline Phosphatase 53
Vital Signs:
Vital Signs
Temp Pulse Resp BP Pulse Ox
98.5 F 56 16 140/67 97
06/18/23 15:08 06/18/23 15:08 06/18/23 15:08 06/18/23 15:08 06/18/23 15:08
I&O
06/17/23 06/18/23 06/19/23
06:59 06:59 06:59
Intake Total 1500 / 1500 780 / 780
Output Total 400 / 400 600 / 600 100 / 100
Balance 1100 / 1100 180 / 180 -100 / -100
[2023-06-18] MEDS: NSS IV (17:13)
[2023-06-18] MEDS: LOVENOX 40 MG SC (17:20)
[2023-06-18] MEDS: FLOMAX 0.800000000000000044 MG PO (20:56)
[2023-06-18] MEDS: CORGARD 80 MG PO (20:58)
[2023-06-18] MEDS: PEPCID 20 MG PO (20:59)
[2023-06-18 23:46] VITALS: BP 138/65
[2023-06-19] MEDS: NSS 1000 IV ×2 (00:47→08:15)
--- NOTE | 2023-06-19 03:34 | DOWNTIME ---
There was a [facility] Client [facility] Downtime on 06/19/2023 from 0100 to 06/19/2023 at 0322. Downtime documentation of patient's care, including medication administrations, has been reconciled in the electronic record per guidelines. Refer to the
patient's paper chart under the miscellaneous tab to see printed paper medication records and downtime forms.
[2023-06-19] MEDS: DILAUDID 0.5 MG IV (06:06)
--- NOTE | 2023-06-19 06:39 | PTCARENOTE ---
Abnormal EKG this a.m. Patient asymptomatic. SR. MANAGER made aware of EKG via tiger text. Received dilaudid for c/o abdominal pain. No n/v this shift. Plan of care continues. Call boyd in reach.
[2023-06-19 07:40] VITALS: BP 133/78
[2023-06-19] MEDS: PROTONIX IV 40 MG IV (07:48)
[2023-06-19] MEDS: NSS (PRESERVATIVE FREE) 10 ML IV (07:49)
--- NOTE | 2023-06-19 14:36 | W.PN.HOSP.TC ---
Today's Communication/Plan
-
Discharge today
Assessment / Plan
Assessment / Plan
Physical Exam
General: Not in acute distress
HEENT: Atraumatic
Respiratory: Clear
Cardiac: S1/S2 and Regular Rhythm
GI: Soft, Non Distended, Normal Bowel Sounds. Mild tenderness in central abdomen.
Musculoskeletal: No Cyanosis and No Edema
Skin: Warm. Dry.
Neuro: Awake, Alert, Oriented and Nonfocal/grossly intact

CT Abd/Pelvis with IV contrast (as per radiologist's report):
IMPRESSION:
1. No definite acute process. No free air or free fluid.
2. Decompressed bowel likely related to diarrhea and vomiting. No focal area of abnormality. No obstruction. Subtle edema adjacent to the duodenum may represent mild inflammation. Please correlate with laboratory values.
3. Appendix within normal limits.
4. Large right inguinal hernia containing loops of nonobstructed bowel.
5. Nonobstructed 3 mm calcification in the right kidney.

Assessment/Plan
Periumbilical pain
Intractable Nausea/Vomiting
Constipation/Diarrhea
Mildly elevated Lipase (possibly secondary to Zepbound), resolved
-Patient intractable nausea and vomiting starting from 06/14/23 night.
-Lipase elevated to 588
-CT abdomen pelvis done in ER on ER Visit 06/15/23 did not show any acute abnormality
-Patient has been started on GLP-1 agonist-got second dose on ~6 days prior to presentation
-Suspecting component pancreatitis from GLP-1 agonist
-Maintain patient on IVF/pain medication/antiemetic
-Diet advanced to low fat, low residue -- continue on discharge
-GI consulted, recommendations appreciated
-Repeat lipase down to normal range
-PPI for 2 weeks
-Zofran PRN
-Patient instructed to follow-up with primary GI at [facility] upon discharge if with further issues.
#Morbid obesity
-Patient started taking GLP-1 agonist for weight loss
Stop GLP-1 agonist
#Leukocytosis
-reactive in nature. monitor
#Diarrhea
-Episode on Saturday night, continue monitoring
-Likely from above-mentioned issues, if further episodes occurs will require stool test
DVT prophylaxis -Lovenox
Full code
More than 30 minutes spent in discharge including
Final examination of the patient
Summarizing hospital stay
Instructions for continuing care to all relevant caregivers
Preparation of discharge records, prescriptions, and referral forms
Total time spent (in minutes): 35
Anticipated Discharge: Today
Subjective/Interval History
-
Date of Service: June 19, 2023
Patient was seen and examined. He reported that his nausea is better and he is now able to tolerate a diet.
Objective Data
-
Vital Signs:
Vital Signs
Temp Pulse Resp BP Pulse Ox
98.5 F 56 20 133/78 95
06/19/23 07:40 06/19/23 07:40 06/19/23 07:40 06/19/23 07:40 06/19/23 08:00
I&O
06/18/23 06/19/23 06/20/23
06:59 06:59 06:59
Intake Total 780 / 780 1979 / 1979
Output Total 600 / 600 1100 / 1100
Balance 180 / 180 880 / 880
[2023-06-19 15:30] VITALS: BP 158/79
--- NOTE | 2023-06-19 16:43 | W.DS.TRANS ---
DC Summary - [employer]
-
Discharge Instructions:
Discharge Diagnosis/Procedures Large right inguinal hernia with loops of non-
obstructed bowel
Non-obstructed 3 mm calcification in the right
kidney
Periumbilical pain
Intractable Nausea/Vomiting
Constipation/Diarrhea
Mildly elevated Lipase (possibly secondary to
Zepbound), resolved
Morbid obesity
Leukocytosis
Diarrhea
Diet Low Fat,Low Residue,As tolerated
Activity As tolerated
Blood Work Recheck your CBC and BMP with your primary care
provider in the next 2 to 3 days
Instructions: Ondansetron
Stand-Alone Forms:
Changes to Home Medications: Yes
Discharge Medications:
DC Medications w/original date entered in [employer]
docusate sodium 100 mg tablet (Stool Softener) 100 mg PO HS Constipation 06/16/23
famotidine 20 mg tablet (Pepcid AC) 20 mg PO HS Gastrointestinal Issue 06/16/23
loratadine 10 mg tablet (Claritin) 10 mg PO DAILY Allergies 06/16/23
nadolol 80 mg tablet 80 mg PO HS Blood Pressure 06/16/23
sumatriptan succinate 50 mg tablet 50 mg PO ONCE PRN migraine 06/16/23
tamsulosin 0.4 mg capsule (Flomax) 0.8 mg PO HS Urinary Issue 06/16/23
ondansetron 4 mg disintegrating tablet 4 mg PO [id number] PRN nausea and vomiting #10 tabs 06/19/23
pantoprazole 40 mg tablet,delayed release (Protonix) 40 mg PO DAILY #14 tabs 06/19/23
Home Medication Changes
Ondansetron is new
Protonix is new
Pending Results: No
Total time spent discharging patient (in min): 35
--- NOTE | 2023-06-20 09:00 | CM ---
CM following re: d/c planning
Chart reviewed
Pt is medically stable for d/c
Pt to f/u with GI at [facility] and continue on low fat & low residue diet
No additional d/c needs noted
PLAN; d/c home no needs
--- NOTE | 2023-06-22 10:17 | W.DCSUMMARY ---
Discharge Summary
Discharge Data
Date of Admission: 06/16/23
Date of Discharge: 06/19/23
Total time spent discharging patient (in min): 35
-
Pending Results: No
Hospital Course
77-year-old male came to the emergency room with new onset of abdominal pain nausea and vomiting. Patient had come to the emergency room the day prior and CT abdomen pelvis and lab work all were essentially normal. Patient was discharged home on
symptomatic care, unfortunately patient symptoms persisted and he returned to the emergency room for re-evaluation. Repeat laboratory evaluation today showing patient having lipase of 588 suggestive of possible developing pancreatitis. Patient was
recently started on a GLP-1 agonist medication. Gastroenterology was consulted and recommended restarting a diet with clear liquid diet and holding patient's Zepbound; their impression was that patient's symptoms were from recently started Zepbound.
Patient was gradually able to tolerate a diet and was stable for discharge home. He would follow-up with his surgeons about following-up for his inguinal hernias.
Discharge Plan
-
Patient Disposition: Home (Routine Discharge)
Discharge Diagnosis/Procedures: Large right inguinal hernia with loops of non-obstructed bowel
Non-obstructed 3 mm calcification in the right kidney
Periumbilical pain
Intractable Nausea/Vomiting
Constipation/Diarrhea
Mildly elevated Lipase (possibly secondary to Zepbound), resolved
Morbid obesity
Leukocytosis
Diarrhea
Condition: Fair
Diet: As tolerated, Low Fat and Low Residue
Activity: As tolerated
Blood Work: Recheck your CBC and BMP with your primary care provider in the next 2 to 3 days
Activity Restrictions/Additional Instructions:
-You need to closely follow-up with your primary care provider as well as your cloth seconds sorter at [facility] and review your medication list with them.
-Please follow-up with gastroenterology (referral placed) to see whether you should continue taking a longer duration of Protonix
-Please carefully read the handout on Ondansetron and its possible side effects, including arrhythmias and QTc prolongation --- you can discuss this further with your PCP
Instructions: Ondansetron
Referrals:
Chloe Kelley DO [Family Provider] - in one to two days (Needs repeat CBC and CMP)
Vinh Huerta MD [Active] - in one to two weeks (Hospital follow-up)
Additional Discharge Medication Instructions: Ondansetron is new
Protonix is new
Prescriptions:
New
ondansetron 4 mg tablet,disintegrating
4 mg PO [id number] PRN (Reason: nausea and vomiting) Qty: 10 0RF
pantoprazole [Protonix] 40 mg tablet,delayed release (DR/EC)
40 mg PO DAILY Qty: 14 0RF
Continued
nadolol 80 mg Tablet
80 mg PO HS
sumatriptan succinate 50 mg Tablet
50 mg PO ONCE PRN (Reason: migraine)
famotidine [Pepcid AC] 20 mg Tablet
20 mg PO HS
tamsulosin [Flomax] 0.4 mg Capsule
0.8 mg PO HS
docusate sodium [Stool Softener] 100 mg Tablet
100 mg PO HS
loratadine [Claritin] 10 mg Tablet
10 mg PO DAILY
Discharge Orders:
Discharge Patient (As Directed); Ordered 06/19/23
Ordered By: Manfred Watkins
Discharge Date and Time
Discharge Date/Time: 06/19/23 17:17
Print Language: BOLIVIAN
== END 2023-06-19 17:17 | disposition home or self-care (01) | DRG 439 ==
LOC: 4 EAST ACU 17:20
PROVIDERS: ADMITTING PHYSICIAN Hospitalist; ATTENDING PHYSICIAN Hospitalist; CONSULT PHYSICIAN Internal Medicine Gastroenterology; EMERGENCY PHYSICIAN Emergency Medicine; FAMILY PHYSICIAN Family Medicine
DX: K85.90 Acute pancreatitis without necrosis or infection, unspecified (principal); Z68.41 Body mass index [BMI] 40.0-44.9, adult; E66.01 Morbid (severe) obesity due to excess calories; K21.9 Gastro-esophageal reflux disease without esophagitis; I10 Essential (primary) hypertension; K40.90 Unilateral inguinal hernia, without obstruction or gangrene, not specified as recurrent; N40.0 Benign prostatic hyperplasia without lower urinary tract symptoms; R74.8 Abnormal levels of other serum enzymes; T44.4X5A Adverse effect of predominantly alpha-adrenoreceptor agonists, initial encounter; Z87.891 Personal history of nicotine dependence
CPT/HCPCS: 74177; 80048; 80053; 81003; 83605; 83690; 85025; 85027; 93005; 96361; 96372; 96374; 96375; 96376; 99284; 99285; Q9967

== ENCOUNTER 2023-07-07 11:26 | Emergency (ER) | payer MEDICARE, OTHER, SELFPAY ==
[2023-07-07 11:28] VITALS: BP 137/69
--- NOTE | 2023-07-07 11:52 | ED.GENMED ---
History of Present Illness
General
Chief Complaint: Abdominal Pain
Source: patient
Time Seen by Provider: 07/07/23 11:51
Travel History
Have you had any contact with someone who has COVID-19?: No
Do you have any symptoms of coronavirus? Fever > 100 degrees, chills, cough, shortness of breath, sore throat, loss of taste or smell, muscle aches, or headache?: No
History of Present Illness
History of Present Illness:
78-year-old male with past medical history of previous prostate cancer, GERD, migraine headaches, recent diagnosis of pancreatitis thought to be related to initiation of a GLP-1 inhibitor for weight loss admitted and discharged within the last 2
weeks presenting back to the emergency department for recurrence of symptoms including generalized abdominal pain but worse periumbilically, nausea and vomiting with decreased p.o. intake over the last 2 days. Patient states symptoms really started
this past Saturday but got acutely worse Saturday and Saturday. He denies any fevers, chills, rigors no known history of gallstones. Patient denies any alcohol use. He has no other concerns at this time.
Past History
Past History
ED Past Medical History: Cancer and Other (BPH, hernia)
Social History
Tobacco: Non-smoker
Alcohol: None
Drug: None
Personal:
Living: alone
Review of Systems
Review of Systems
All Other Systems: ROS reviewed and negative except as documented in HPI and ROS
Phy Exam
Physical Exam
Physical Exam:
GENERAL: Alert , in no apparent distress but does appear uncomfortable
EYE: clear conjunctiva b/l
HEAD: NCAT
ENT: o/p clr, mmm.
CARDIAC: Regular rate and rhythm .
LUNGS: Clear breath sounds bilaterally, no acute respiratory distress, no wheezes/rales/rhonchi
ABDOMEN: Soft, tenderness periumbilically, no r/g, no cvat, negative Chi sign, no tenderness at McBurney's point
NEUROLOGICAL: Alert and oriented
SKIN: Warm and dry, skin intact.
MUSCULOSKELETAL: No edema, well perfused.
PSYCH: Normal and appropriate interaction.
Scores
Heart Failure Risk
Heart Failure Risk Score: Not Applicable
Heart Score for Chest Pain Patients
STEMI patient?: Not applicable
Withdrawal Assessment of Alcohol
Withdrawal Assessment Completed?: Not applicable
Course
Orders/Labs/Results
Orders:
Orders
07/07/23 12:02
0.9% Sodium Chloride 1000 ml [Nss] 1,000 ml IV BOLUS
HYDROmorphone [Dilaudid] 0.5 mg IV NOW STA
Ondansetron Injectable [Zofran] 4 mg IV NOW STA
07/07/23 12:36
Complete Blood Count/With Diff Urgent
Comprehensive Metabolic Panel Urgent
Lipase Urgent
07/07/23 12:51
Urinalysis Reflex To Culture Urgent
Date Specimen was Collected: 07/07/23
Time Specimen was Collected: 12:49
07/07/23 14:10
0.9% Sodium Chloride 1000 ml [Nss] 1,000 ml IV BOLUS
Abnormal Lab Results
07/07/23 07/07/23
12:36 12:51
RDW 14.6 H %
(11.5-14.5)
MPV 10.5 H fL
(7.4-10.4)
Absolute Neuts (auto) 7.0 H 10^3/uL
(1.4-6.5)
Absolute Lymphs (auto) 1.1 L 10^3/uL
(1.2-3.4)
Neutrophils % 77.5 H %
(42.2-75.2)
Lymphocytes % 12.3 L %
(20.5-51.1)
Glucose 113 H mg/dl
(70-99)
Total Protein 5.6 L g/dl
(6.3-8.2)
Albumin 3.2 L g/dl
(3.5-5.0)
Urine Bilirubin 1+ A
(Negative)
07/07/23 12:36
07/07/23 12:36
Vital Signs
Initial and Last Documented VS:
Initial Vital Signs
Temp Pulse Resp BP Pulse Ox
97.9 F 66 16 137/69 96
07/07/23 11:28 07/07/23 11:28 07/07/23 11:28 07/07/23 11:28 07/07/23 11:28
Last Documented Vital Signs
Temp Pulse Resp BP Pulse Ox
98.3 F 66 16 138/67 95
07/07/23 16:14 07/07/23 11:28 07/07/23 11:28 07/07/23 15:00 07/07/23 15:49
MDM/Problems Addressed
Differential Diagnosis Includes:
Recurrence of pancreatitis, GERD/gastritis, gallstones, gastroenteritis
MDM/Problems Addressed:
78-year-old male presenting emergency department for evaluation of abdominal pain, nausea and vomiting with symptoms similar to that of when he was admitted for pancreatitis. At that time it was thought to be related to Zepbound which was
prescribed to the patient for weight loss by his primary care provider. Patient notes that while his symptoms were not fully resolved they were improved to the point where he was able to tolerate a brat diet. Acutely worse since Saturday. He has
been taking Zofran and Reglan intermittently at home with minimal relief. Last dose of Reglan was at 6 AM this morning. Will check labs and treat with half milligram of Dilaudid and Zofran which patient notes helped him while he was inpatient as
well as IV fluids. Reassessment following.
*Pulse Oximetry
Patient hypoxic: no
*Critical Care Note
Total Time (30-74mins, 75-104mins- exclusive of procedures): Not Applicable
Data Reviewed
Review of Other/Old Records Reveals: Labs, Records and Discharge Summary
Source: patient
Patient Management
Discussion with other providers: PCP
Escalation/DeEscalation of care consider admission/obs:
On multiple reevaluations patient pain is improved and he is in no acute distress. He was able to tolerate p.o. without much difficulty. Patient did ask me about potentially staying overnight in the hospital however I explained to him that his
pain is improved, his labs are all reassuring and he is in no acute distress and that he can continue to attempt to manage his symptoms at home. I did notify patient's primary care provider about his visit to the emergency department today and
encouraged the patient to contact the primary to help with follow-up. Patient is aware of return precautions emergency department but otherwise stable for discharge home.
ED Attending Note
-
Portions of this chart may have been created with voice recognition software.� Occasional wrong word or��sound alike� substitutions may have occurred due to the inherent limitations of voice recognition software.
Discharge Plan
Departure
Patient Disposition: Home (Routine Discharge)
Date of Disposition: 07/07/23
Time of Disposition: 15:48
Patient with high blood pressure during this ER visit?: No
Discharge Problem:
Abdominal pain, Nausea
Instructions: Abdominal Pain
Prescriptions:
New
oxycodone 5 mg tablet
5 mg PO BID PRN (Reason: Pain) Qty: 6 0RF
No Action
nadolol 80 mg Tablet
80 mg PO HS
sumatriptan succinate 50 mg Tablet
50 mg PO ONCE PRN (Reason: migraine)
famotidine [Pepcid AC] 20 mg Tablet
20 mg PO HS
tamsulosin [Flomax] 0.4 mg Capsule
0.8 mg PO HS
docusate sodium [Stool Softener] 100 mg Tablet
100 mg PO HS
loratadine [Claritin] 10 mg Tablet
10 mg PO DAILY
ondansetron 4 mg tablet,disintegrating
4 mg PO [id number] PRN (Reason: nausea and vomiting) Qty: 10 0RF
pantoprazole [Protonix] 40 mg tablet,delayed release (DR/EC)
40 mg PO DAILY Qty: 14 0RF
Referrals:
Chloe Kelley DO [Family Provider] -
Interventions
Interventions:
*Risk Screen - Suicide Last Done: 07/07/23 11:28
*General Assessment Last Done: 07/07/23 11:28
*Neglect/Abuse Screening Last Done: 07/07/23 11:28
ED- Fall Risk Assessment Last Done: 07/07/23 12:00
*ED COVID-19 Vaccine History Last Done: 07/07/23 11:28
*Nursing Disposition Last Done: 07/07/23 16:15
IZ-Ecvctt-Trhuyllqea Assessment Last Done: 07/07/23 12:00
Discharge Date and Time
Discharge Date/Time: 07/07/23 16:16
Print Language: GREEK
[2023-07-07] MEDS: DILAUDID 0.5 MG IV (12:18)
[2023-07-07] MEDS: ZOFRAN 4 MG IV (12:18)
[2023-07-07] MEDS: NSS 1000 IV ×2 (12:19→14:14)
[2023-07-07 12:21] VITALS: BP 126/67
[2023-07-07 12:44] LABS: % Basophils 0.4 % (0-2); % Eosinophils 3.2 % (0-6); % Immature Granulocytes 0.3 % (0-0.5); % Lymphocytes 12.3 % (20.5-51.1); % Monocytes 6.3 % (1.7-9.3); % Neutrophils 77.5 % (42.2-75.2); Absolute Eosinophils 0.3 10^3/uL (0-0.7); Absolute Lymphocytes 1.1 10^3/uL (1.2-3.4); Absolute Monocytes 0.6 10^3/uL (0.1-0.6); Hemoglobin 13.6 g/dL (13.0-18.0); Mean Corpuscular Hgb 27.7 pg (27.0-31.0); Mean Corpuscular Volume 81.5 fL (80.0-94.0); Mean Platelet Volume 10.5 fL (7.4-10.4); Nucleated Red Blood Cells % 0 % (-); Platelet Count 203 10^3/uL (130-400); Red Blood Cell Count 4.91 10^6/uL (4.70-6.10); Red Cell Dist. Width 14.6 % (11.5-14.5)
[2023-07-07 12:58] LABS: ALT (SGPT) 22 U/L (0-50); AST (SGOT) 19 U/L (17-59); Albumin 3.2 g/dl (3.5-5.0); Alkaline Phosphatase 78 U/L (38-126); Blood Urea Nitrogen 17 mg/dl (9-20); Calcium 9.4 mg/dl (8.4-10.2); Carbon Dioxide 25 mmol/L (22-30); Chloride 104 mmol/L (98-107); Glucose 113 mg/dl (70-99); Lipase 86 U/L (23-300); Potassium 4.3 mmol/L (3.5-5.1); Sodium 135 mmol/L (135-145); Total Bilirubin 0.5 mg/dl (0.2-1.3); Total Protein 5.6 g/dl (6.3-8.2); eGFR > 60.00
[2023-07-07 13:00] VITALS: BP 123/65
[2023-07-07 13:04] LABS: Urine Albumin Negative (Neg - Trace); Urine Bilirubin 1+ (Negative); Urine Character Clear (Clear); Urine Color Yellow; Urine Glucose Negative (Negative); Urine Ketone Negative (Negative); Urine Leukocyte Negative (Negative); Urine Nitrite Negative (Negative); Urine Occult Blood Negative (Negative); Urine Urobilinogen Negative (Neg - 1+)
[2023-07-07 14:00] VITALS: BP 123/64
[2023-07-07 15:00] VITALS: BP 138/67
== END 2023-07-07 16:16 | disposition home or self-care (01) ==
LOC: EMR 11:26
PROVIDERS: Physician Assistant Medical; EMERGENCY PHYSICIAN Emergency Medicine; FAMILY PHYSICIAN Family Medicine
DX: R10.84 Generalized abdominal pain (principal); R11.0 Nausea; K21.9 Gastro-esophageal reflux disease without esophagitis; N40.0 Benign prostatic hyperplasia without lower urinary tract symptoms; Z85.46 Personal history of malignant neoplasm of prostate; Z87.19 Personal history of other diseases of the digestive system
CPT/HCPCS: 99283; 96374; 96375; 96361; 80053; 81003; 83690; 85025

== ENCOUNTER → 2023-07-10 14:32 | Outpatient (REF) | payer MEDICARE, OTHER, SELFPAY | LOC: RAD 14:32 | PROVIDERS: ATTENDING PHYSICIAN Family Medicine | DX: R10.84 Generalized abdominal pain (principal); Z09 Encounter for follow-up examination after completed treatment for conditions other than malignant neoplasm; K85.30 Drug induced acute pancreatitis without necrosis or infection | CPT/HCPCS: 74177; Q9967 ==

== ENCOUNTER 2023-07-31 10:16 | Emergency (ER) | payer MEDICARE, OTHER, SELFPAY ==
[2023-07-31 10:20] VITALS: BP 97/69
[2023-07-31 11:08] VITALS: BP 142/83
[2023-07-31 11:17] LABS: % Basophils 0.9 % (0-2); % Eosinophils 5.2 % (0-6); % Immature Granulocytes 0.3 % (0-0.5); % Lymphocytes 13.9 % (20.5-51.1); % Monocytes 5.7 % (1.7-9.3); Absolute Basophils 0.1 10^3/uL (0-0.2); Absolute Eosinophils 0.6 10^3/uL (0-0.7); Absolute Lymphocytes 1.6 10^3/uL (1.2-3.4); Absolute Monocytes 0.7 10^3/uL (0.1-0.6); Absolute Neutrophils 8.7 10^3/uL (1.4-6.5); Hematocrit 46.7 % (39.0-52.0); Hemoglobin 15.6 g/dL (13.0-18.0); Mean Corp Hgb Conc. 33.4 g/dL (33.0-37.0); Mean Corpuscular Hgb 27.7 pg (27.0-31.0); Mean Corpuscular Volume 82.8 fL (80.0-94.0); Mean Platelet Volume 10.5 fL (7.4-10.4); Nucleated Red Blood Cells % 0 % (-); Platelet Count 204 10^3/uL (130-400); Red Blood Cell Count 5.64 10^6/uL (4.70-6.10); Red Cell Dist. Width 14.6 % (11.5-14.5); White Blood Cell Count 11.7 10^3/uL (4.8-10.8)
[2023-07-31 11:28] LABS: ALT (SGPT) 20 U/L (0-50); AST (SGOT) 21 U/L (17-59); Alkaline Phosphatase 92 U/L (38-126); Blood Urea Nitrogen 14 mg/dl (9-20); Calcium 10.1 mg/dl (8.4-10.2); Carbon Dioxide 29 mmol/L (22-30); Chloride 103 mmol/L (98-107); Glucose 121 mg/dl (70-99); Lipase 60 U/L (23-300); Potassium 4.3 mmol/L (3.5-5.1); Sodium 137 mmol/L (135-145); Total Bilirubin 0.7 mg/dl (0.2-1.3); Total Protein 6.7 g/dl (6.3-8.2); eGFR > 60.00
--- NOTE | 2023-07-31 11:55 | ED.GENMED ---
History of Present Illness
<TAMMY Garcia - Last Filed: 07/31/23 15:44>
General
Chief Complaint: Abdominal Pain
Source: patient
Exam Limitations: none
Time Seen by Provider: 07/31/23 11:02
Nursing documentation reviewed up to this point in time: agreed with
Travel History
Have you had any contact with someone who has COVID-19?: No
Do you have any symptoms of coronavirus? Fever > 100 degrees, chills, cough, shortness of breath, sore throat, loss of taste or smell, muscle aches, or headache?: No
History of Present Illness
History of Present Illness:
Patient is a 78-year-old male presents ER complaint abdominal pain. Patient tells me he was recently diagnosed in May with pancreatitis related to the new medication and Zepbound, GLP�1 agonist. He was hospitalized for 3 days in May with
diagnosis of pancreatitis and reports has had intermittent flareups since and complains of nausea abdominal pain since yesterday this is similar to his pancreatitis pain in the past. He was also seen here in ED again 07/06. He does report he has
been constipated for the past several days but also has not eaten much.
Patient had a CAT scan done during the visit of July 09 which showed a normal appearance of pancreas on the CAT scan and the inflammatory change that was adjacent to the duodenum head of the pancreas that was seen on prior CAT scan was resolved.
Patient had a large direct right inguinal hernia containing a loop of small bowel no evidence of incarceration or Obstruction and Right-Sided Nephrolithiasis without Hydronephrosis. Patient Also Had a CAT Scan on June 14 When He Was Seen Here for
Abdominal Pain.
Past History
<TAMMY Garcia - Last Filed: 07/31/23 15:44>
Past History
ED Past Medical History: Cancer and Other (BPH, hernia)
Social History
Tobacco: Non-smoker
Alcohol: None
Drug: None
Personal:
Living: alone
Review of Systems
<TAMMY Garcia - Last Filed: 07/31/23 15:44>
Review of Systems
Allergies reviewed?: Yes
All Other Systems: ROS reviewed and negative except as documented in HPI and ROS
Constitutional: Reports no symptoms; Denies fever, fatigue or chills
Respiratory: Reports no symptoms
Cardiac: Reports no symptoms
ABD/GI: Reports abdominal pain, nausea and vomiting
: Reports no symptoms
Musculoskeletal: Reports no symptoms
Skin: Reports no symptoms
Neurological: Reports no symptoms
Hematologic/Lymphatic: Reports no symptoms
Psychiatric: Reports no symptoms
Phy Exam
<TAMMY Garcia - Last Filed: 07/31/23 15:44>
General Physical Exam
General Presentation: no apparent distress
General age: appears stated age
General Skin: warm and dry
General Habitus: normal
General Mental: alert
Cardiovascular Exam
Cardiovascular Exam: regular rate/rhythm, no murmur and normal peripheral pulses
Pulmonary Exam
Pulmonary Exam: lungs clear and no respiratory distress
Gastrointestinal Exam
Gastrointestinal Exam: non tender and soft
Neurological Exam
Neurological Exam: alert and oriented x3
Musculoskeletal Exam
Musculoskeletal Exam: full ROM
Skin Exam
Skin Exam: normal color and warm/dry
Psychiatric Exam
Psychiatric Exam: normal mood/affect
Course
<TAMMY Garcia - Last Filed: 07/31/23 15:44>
Orders/Labs/Results
Orders:
Orders
07/31/23 11:02
Complete Blood Count/With Diff Urgent
Comprehensive Metabolic Panel Urgent
Lipase Urgent
07/31/23 12:04
Ondansetron Injectable [Zofran] 4 mg IV NOW STA
07/31/23 12:06
CT Abd/pelvis W Iv Cont Urgent
Comment:
Reason For Exam: left sided abd pain nausea nml lipase
0.9% Sodium Chloride 1000 ml [Nss] 1,000 ml IV BOLUS
07/31/23 14:14
Ketorolac [Toradol] 15 mg IV NOW STA
07/31/23 14:27
Urinalysis Reflex To Culture Urgent
Date Specimen was Collected: 07/31/23
Time Specimen was Collected: 14:26
Abnormal Lab Results
07/31/23 07/31/23
11:02 14:27
WBC 11.7 H 10^3/uL
(4.8-10.8)
RDW 14.6 H %
(11.5-14.5)
MPV 10.5 H fL
(7.4-10.4)
Absolute Neuts (auto) 8.7 H 10^3/uL
(1.4-6.5)
Absolute Monos (auto) 0.7 H 10^3/uL
(0.1-0.6)
Lymphocytes % 13.9 L %
(20.5-51.1)
Glucose 121 H mg/dl
(70-99)
Urine Ketones 1+ A
(Negative)
Urine Bilirubin 1+ A
(Negative)
07/31/23 11:02
07/31/23 11:02
Vital Signs
Initial and Last Documented VS:
Initial Vital Signs
Temp Pulse Resp BP Pulse Ox
97.6 F 80 18 97/69 96
07/31/23 10:20 07/31/23 10:20 07/31/23 10:20 07/31/23 10:20 07/31/23 10:20
Last Documented Vital Signs
Temp Pulse Resp BP Pulse Ox
97.6 F 66 14 161/76 98
07/31/23 10:20 07/31/23 14:15 07/31/23 14:15 07/31/23 14:00 07/31/23 14:15
Sales Performance Analyst consulted with Physician
Sales Performance Analyst consulted with physician?: Yes
Name of Physician Consulted: Nola
<Bladimir Alvarado Nola, DO - Last Filed: 07/31/23 15:24>
Orders/Labs/Results
Orders:
Orders
07/31/23 11:02
Complete Blood Count/With Diff Urgent
Comprehensive Metabolic Panel Urgent
Lipase Urgent
07/31/23 12:04
Ondansetron Injectable [Zofran] 4 mg IV NOW STA
07/31/23 12:06
CT Abd/pelvis W Iv Cont Urgent
Comment:
Reason For Exam: left sided abd pain nausea nml lipase
0.9% Sodium Chloride 1000 ml [Nss] 1,000 ml IV BOLUS
07/31/23 14:14
Ketorolac [Toradol] 15 mg IV NOW STA
07/31/23 14:27
Urinalysis Reflex To Culture Urgent
Date Specimen was Collected: 07/31/23
Time Specimen was Collected: 14:26
Abnormal Lab Results
07/31/23 07/31/23
11:02 14:27
WBC 11.7 H 10^3/uL
(4.8-10.8)
RDW 14.6 H %
(11.5-14.5)
MPV 10.5 H fL
(7.4-10.4)
Absolute Neuts (auto) 8.7 H 10^3/uL
(1.4-6.5)
Absolute Monos (auto) 0.7 H 10^3/uL
(0.1-0.6)
Lymphocytes % 13.9 L %
(20.5-51.1)
Glucose 121 H mg/dl
(70-99)
Urine Ketones 1+ A
(Negative)
Urine Bilirubin 1+ A
(Negative)
07/31/23 11:02
07/31/23 11:02
Vital Signs
Initial and Last Documented VS:
Initial Vital Signs
Temp Pulse Resp BP Pulse Ox
97.6 F 80 18 97/69 96
07/31/23 10:20 07/31/23 10:20 07/31/23 10:20 07/31/23 10:20 07/31/23 10:20
Last Documented Vital Signs
Temp Pulse Resp BP Pulse Ox
97.6 F 66 14 161/76 98
07/31/23 10:20 07/31/23 14:15 07/31/23 14:15 07/31/23 14:00 07/31/23 14:15
<TAMMY Garcia - Last Filed: 07/31/23 15:44>
MDM/Problems Addressed
Differential Diagnosis Includes:
Not limited to pancreatitis, diverticulitis, but obstruction
MDM/Problems Addressed:
Patient is a 78-year male who presents to the ER with complaints of abdominal pain and nausea. Patient was initially admitted in May for abdominal pain and pancreatitis likely resulting from his GLP�1 agonist medication Zepbound . Patient was
again seen here July 06 in the ER and had an unremarkable workup and was discharged home
Reports back to the ER with the same type of pain. Complains about constipation but report has not eaten also because of the discomfort. He did present to the ER asking for pain medication he was concerned initial about pancreatitis again however
this GLP-1 agonist was discontinued in May with his original episode of pancreatitis. Who presents awake alert no acute distress abdomen soft and nontender though he does complain of pain and nausea. Patient was given nausea medicine Toradol CAT
scan shows no pancreatic or peripancreatic inflammatory changes to suggest acute pancreatitis lipase is normal. No other acute findings in the CAT scan, normal chemistries white count minimally elevated 11.7. neg UA. Pt is non toxic appearing.
evaluated by ED physician .
Patient has requested Dilaudid and strong pain medication multiple times here in the ER however with no actual findings on CAT scan nml lipase and labs . I held off on Dilaudid. He also mention he was constipated his constipation worse. He was
given some Toradol here.
<TAMMY Garcia - Last Filed: 07/31/23 15:44>
*Radiology
Radiology exam reviewed: radiology read reviewed
*Pulse Oximetry
Patient hypoxic: no
*Critical Care Note
Total Time (30-74mins, 75-104mins- exclusive of procedures): Not Applicable
Data Reviewed
Review of Other/Old Records Reveals: Radiology Studies, Discharge Summary and Other (Previous ED admission and previous hospitalization)
Source: patient
ED Attending Note
<TAMMY Garcia - Last Filed: 07/31/23 15:44>
-
Portions of this chart may have been created with voice recognition software.� Occasional wrong word or��sound alike� substitutions may have occurred due to the inherent limitations of voice recognition software.
<Bladimir Vaca DO - Last Filed: 07/31/23 15:24>
ED Attending Note
Patient seen and examined by attending physician: Yes
I performed the substantive portion of visit, reviewed & personally made and approve the management plan that is documented in note by myself or REGGIE.: Yes
I performed a history and physical exam of patient and discussed management with resident, I reviewed resident's note and agree with documented findings and plan of care.: Yes
ED Attending Note:
I evaluated the patient at bedside. The patient appears comfortable but states that he feels he may need something for pain like Dilaudid like he had the last time. However his ED workup including lipase and CT imaging are unremarkable. He has
said that he has had constipation over the last 10 days or so and we talked about the possibly of constipation. He states MiraLAX caused diarrhea over a week ago but he is willing to try the MiraLAX again. No clear indication for narcotic
analgesia he was fairly comfortable. We are trying to arrange close follow-up with GI.
Discharge Plan
Departure
Patient Disposition: Home (Routine Discharge)
Date of Disposition: 07/31/23
Time of Disposition: 15:37
Patient with high blood pressure during this ER visit?: Yes
Condition: Fair
Covid-19: Not Applicable
Discharge Problem:
Abdominal pain
Instructions: Abdominal Pain
Prescriptions:
No Action
nadolol 80 mg Tablet
80 mg PO HS
sumatriptan succinate 50 mg Tablet
0 mg PO .COMPLEX
Rx Instructions:
07/31/2023, take 1 tab at onset of headache; if no relief may repeat 1 tab after at least 2 hrs; max = 4 tabs/24 hr.
famotidine [Pepcid AC] 20 mg Tablet
20 mg PO HS
tamsulosin 0.4 mg Capsule
0.8 mg PO HS
docusate sodium [Stool Softener] 100 mg Capsule
200 mg PO HS
loratadine [Claritin] 10 mg Tablet
10 mg PO HS
Stool Softener Powder
1 dose PO DAILYPRN PRN (Reason: constipation)
Patient Comments:
07/31/2023, one capful.
Referrals:
Maddie Obregon MD [Active] -
Chloe Kelley DO [Family Provider] -
Activity Restrictions/Additional Instructions:
as discussed your CAT scan and labs were normal.
Follow-up with GI soon as possible please give them a call to schedule appointment. I did reach out to the hotline in order to try and expedite your appointment return if any worsening of symptoms.
Interventions
Interventions:
*Risk Screen - Suicide Last Done: 07/31/23 10:20
*General Assessment Last Done: 07/31/23 10:20
*Neglect/Abuse Screening Last Done: 07/31/23 10:20
ED- Fall Risk Assessment Last Done: 07/31/23 11:14
*ED COVID-19 Vaccine History Last Done: 07/31/23 10:20
EP-Lncdzj-Qpplytumzs Assessment Last Done: 07/31/23 11:14
Discharge Date and Time
Print Language: MACEDONIAN
[2023-07-31 12:00] VITALS: BP 147/75
[2023-07-31] MEDS: NSS 1000 IV (12:18)
[2023-07-31] MEDS: ZOFRAN 4 MG IV (12:18)
[2023-07-31 13:22] VITALS: BP 163/80
[2023-07-31 14:00] VITALS: BP 161/76
[2023-07-31] MEDS: TORADOL 15 MG IV (14:19)
[2023-07-31 14:41] LABS: Urine Albumin Trace (Neg - Trace); Urine Bilirubin 1+ (Negative); Urine Character Clear (Clear); Urine Color Yellow; Urine Glucose Negative (Negative); Urine Ketone 1+ (Negative); Urine Leukocyte Negative (Negative); Urine Nitrite Negative (Negative); Urine Occult Blood Negative (Negative); Urine Urobilinogen Negative (Neg - 1+)
== END 2023-07-31 16:32 | disposition home or self-care (01) ==
LOC: EMR 10:16
PROVIDERS: Nurse Practitioner; EMERGENCY PHYSICIAN Emergency Medicine; FAMILY PHYSICIAN Family Medicine
DX: R10.9 Unspecified abdominal pain (principal); R03.0 Elevated blood-pressure reading, without diagnosis of hypertension
CPT/HCPCS: 99285; 96374; 96375; 96361; 74177; 80053; 81003; 83690; 85025; Q9967

== ENCOUNTER 2023-08-05 12:54 | Inpatient (IN) | payer MEDICARE, OTHER, SELFPAY ==
[2023-08-05] VITALS (7 sets, daily range): BP systolic 111–136; BP diastolic 58–77; BMI 39.4
[2023-08-05 11:30] LABS: % Basophils 0.9 % (0-2); % Eosinophils 1.3 % (0-6); % Immature Granulocytes 0.2 % (0-0.5); % Lymphocytes 9.8 % (20.5-51.1); % Monocytes 6.4 % (1.7-9.3); % Neutrophils 81.4 % (42.2-75.2); Absolute Basophils 0.1 10^3/uL (0-0.2); Absolute Eosinophils 0.2 10^3/uL (0-0.7); Absolute Lymphocytes 1.2 10^3/uL (1.2-3.4); Absolute Monocytes 0.8 10^3/uL (0.1-0.6); Absolute Neutrophils 9.8 10^3/uL (1.4-6.5); Hematocrit 47.4 % (39.0-52.0); Hemoglobin 15.9 g/dL (13.0-18.0); Mean Corp Hgb Conc. 33.5 g/dL (33.0-37.0); Mean Corpuscular Hgb 27.7 pg (27.0-31.0); Mean Corpuscular Volume 82.4 fL (80.0-94.0); Mean Platelet Volume 11.3 fL (7.4-10.4); Nucleated Red Blood Cells % 0 % (-); Platelet Count 202 10^3/uL (130-400); Red Blood Cell Count 5.75 10^6/uL (4.70-6.10); Red Cell Dist. Width 14.2 % (11.5-14.5); White Blood Cell Count 12.1 10^3/uL (4.8-10.8)
--- NOTE | 2023-08-05 11:32 | ED.GENMED ---
History of Present Illness
<Bladimir Alvarado Nola, DO - Last Filed: 08/05/23 14:50>
General
Chief Complaint: Abdominal Pain
Time Seen by Provider: 08/05/23 11:31
Travel History
Have you had any contact with someone who has COVID-19?: No
Do you have any symptoms of coronavirus? Fever > 100 degrees, chills, cough, shortness of breath, sore throat, loss of taste or smell, muscle aches, or headache?: No
History of Present Illness
History of Present Illness:
HPI: The patient presents with abdominal pain. The patient was seen in the ED 7 weeks ago and discharged, 6 weeks ago and admitted but lipase was slightly elevated, 4 weeks ago and discharged from the ED, 1 week ago and discharged from ED. The
patient states that he saw his PMD 3 days ago and he has an upper MRI of the 4 days and is supposed to see GI in another week. He states his symptoms are too debilitating. He is requesting Dilaudid stating that this is the only thing that helped
him in the past.
EXAM:
GENERAL: Well appearing in mild to moderate distress
HEENT: Moist oral mucosa
CARDIOVASCULAR: No murmurs, normal heart rate, regular rhythm, No chest wall tenderness
PULMONARY: No respiratory distress, breath sounds are clear and equal
ABDOMEN: Soft with no peritoneal signs, very mild central abdominal tenderness, right inguinal hernia noted which is soft and easily reduced, empty rectal vault.
NEUROLOGIC: Excellent strength all extremities, no coordination deficits
PSYCHIATRIC: Appropriate mental status, normal insight and judgement
EXTREMITIES: Nontender, no edema, moves all extremities equally
SKIN: No rash, no lesions
TIME OF INITIAL ENCOUNTER: 11:45 AM
NUMBER AND COMPLEXITY OF PROBLEMS ADDRESSED AT THE ENCOUNTER
� Chronic conditions affecting care: History of migraine type headache, has had pancreatitis, prostate cancer
� Acute Exacerbation and/or Progression of Chronic Illness: This is a subacute problem and is recurring
� Differential Diagnosis includes: Pancreatitis, mesenteric adenitis, epiploic appendagitis, abdominal wall pain, bowel obstruction very unlikely, constipation
AMOUNT AND/OR COMPLEXITY OF DATA TO BE REVIEWED AND ANALYZED
� I performed an independent evaluation of and my interpretation is:
EKG:
CT:
X-rays:
Laboratory Studies: White count slightly high at 12.1 which is slightly higher than prior
Other:
� Review of other/old records: 5 days ago, the patient's white count was slightly high at 11.7, prior imaging in June showed a large right inguinal hernia
� Clinical information was obtained by an independent historian: None needed
� Prescriptions/Medications Considered but not given:
� Further testing considered but not performed: Did not order or imaging today as he has had several CT imaging studies in the recent past
RISK OF COMPLICATIONS AND/OR MORBIDITY OR MORTALITY OF PATIENT MANAGEMENT
� Social determinants of health affecting care: Lives at home
� Discussion with other providers: I reviewed the: Note from Dr. Chloe Arauz indicates that the patient had an MRI of the abdomen and was prescribed Dilaudid 2 mg has not helped. She recommends admission to the hospital.
The CAT scan from 5 days ago showed no sign of pancreatitis; I also discussed with Dr. Bañuelos who will see in consultation if admitted to the hospital.
� Escalation of care including admission/observation vs risk of discharge considered: I discussed case with Dr. Chloe Arauz is requesting admission to the hospital. I spoke to GI�GI will see in consultation if admitted to
the hospital. I did order IV fluids here. Basic blood work is relatively unremarkable including normal lactic and lipase however the white count is slightly higher than prior. He has been doing poorly as an outpatient. He also tells me that he
cannot tolerate food or drink indicating the pain becomes so severe afterward.
Past History
<Bladimir Vaca, DO - Last Filed: 08/05/23 14:50>
Past History
ED Past Medical History: Cancer and Other (BPH, hernia)
Social History
Tobacco: Non-smoker
Alcohol: None
Drug: None
Personal:
Living: alone
Phy Exam
<TAMMY Garcia - Last Filed: 08/05/23 12:41>
Physical Exam
Physical Exam:
see HPI
Course
<Bladimir Vaca DO - Last Filed: 08/05/23 14:50>
Orders/Labs/Results
Orders:
Orders
08/05/23 11:19
Complete Blood Count/With Diff Urgent
Comprehensive Metabolic Panel Urgent
Lipase Urgent
08/05/23 11:44
0.9% Sodium Chloride 1000 ml [Nss] 1,000 ml IV BOLUS
Famotidine [Pepcid] 20 mg IV NOW STA
HYDROmorphone [Dilaudid] 1 mg IV NOW STA
Ketorolac [Toradol] 15 mg IV NOW STA
08/05/23 11:45
Ondansetron Injectable [Zofran] 4 mg IV NOW STA
08/05/23 12:03
Lactic Acid Urgent
08/05/23 12:16
EKG [Electrocardiogram (*1)] Stat
Reason for Study: QTc Monitoring
08/05/23 12:18
GASTROINTESTINAL CONSULT Routine
Consulting Provider: Trini Bañuelos
Was physician already notified: Yes
08/05/23 12:24
Admit/Transfer Patient As Directed
Co-Sign Provider:
Level of Care: Inpatient admission
Assign to:: Medical/Surgical
Physician / Group: ravi
Diagnosis: abdominal pain
Reason for Hospitalization: abdominal pain
Expected length of stay greater than two midnights?: Yes
ELOS- Estimated Length of Stay in days: 3
I certify the patient meets the requirements for IP care: Yes
08/05/23 12:25
Code Status As Directed
Resuscitation Status: Full Code
08/05/23 12:34
MRI Abdomen [MR Abdomen Without Contrast] Routine
Comment:
Reason For Exam: abdominal pain
Recent pill cam endoscopy?: No
08/05/23 12:43
Methylnaltrexone [place] [Relistor] 8 mg SC ONCE ONE
Abnormal Lab Results
08/05/23
11:19
WBC 12.1 H 10^3/uL
(4.8-10.8)
MPV 11.3 H fL
(7.4-10.4)
Absolute Neuts (auto) 9.8 H 10^3/uL
(1.4-6.5)
Absolute Monos (auto) 0.8 H 10^3/uL
(0.1-0.6)
Neutrophils % 81.4 H %
(42.2-75.2)
Lymphocytes % 9.8 L %
(20.5-51.1)
08/05/23 11:19
08/05/23 11:19
Vital Signs
Initial and Last Documented VS:
Initial Vital Signs
Temp Pulse Resp BP Pulse Ox
97.7 F 72 18 111/68 96
08/05/23 11:13 08/05/23 11:13 08/05/23 11:13 08/05/23 11:13 08/05/23 11:13
Last Documented Vital Signs
Temp Pulse Resp BP Pulse Ox
97.7 F 64 22 118/61 97
08/05/23 11:13 08/05/23 13:50 08/05/23 13:50 08/05/23 13:50 08/05/23 13:50
<TAMMY Garcia - Last Filed: 08/05/23 12:41>
Orders/Labs/Results
Orders:
Orders
08/05/23 11:19
Complete Blood Count/With Diff Urgent
Comprehensive Metabolic Panel Urgent
Lipase Urgent
08/05/23 11:44
0.9% Sodium Chloride 1000 ml [Nss] 1,000 ml IV BOLUS
Famotidine [Pepcid] 20 mg IV NOW STA
HYDROmorphone [Dilaudid] 1 mg IV NOW STA
Ketorolac [Toradol] 15 mg IV NOW STA
08/05/23 11:45
Ondansetron Injectable [Zofran] 4 mg IV NOW STA
08/05/23 12:03
Lactic Acid Urgent
08/05/23 12:16
EKG [Electrocardiogram (*1)] Stat
Reason for Study: QTc Monitoring
08/05/23 12:18
GASTROINTESTINAL CONSULT Routine
Consulting Provider: Trini Bañuelos
Was physician already notified: Yes
08/05/23 12:24
Admit/Transfer Patient As Directed
Co-Sign Provider:
Level of Care: Inpatient admission
Assign to:: Medical/Surgical
Physician / Group: ravi
Diagnosis: abdominal pain
Reason for Hospitalization: abdominal pain
Expected length of stay greater than two midnights?: Yes
ELOS- Estimated Length of Stay in days: 3
I certify the patient meets the requirements for IP care: Yes
08/05/23 12:25
Code Status As Directed
Resuscitation Status: Full Code
08/05/23 12:34
MRI Abdomen [MR Abdomen Without Contrast] Routine
Comment:
Reason For Exam: abdominal pain
Recent pill cam endoscopy?: No
08/05/23 12:43
Methylnaltrexone [place] [Relistor] 8 mg SC ONCE ONE
Abnormal Lab Results
08/05/23
11:19
WBC 12.1 H 10^3/uL
(4.8-10.8)
MPV 11.3 H fL
(7.4-10.4)
Absolute Neuts (auto) 9.8 H 10^3/uL
(1.4-6.5)
Absolute Monos (auto) 0.8 H 10^3/uL
(0.1-0.6)
Neutrophils % 81.4 H %
(42.2-75.2)
Lymphocytes % 9.8 L %
(20.5-51.1)
08/05/23 11:19
08/05/23 11:19
Vital Signs
Initial and Last Documented VS:
Initial Vital Signs
Temp Pulse Resp BP Pulse Ox
97.7 F 72 18 111/68 96
08/05/23 11:13 08/05/23 11:13 08/05/23 11:13 08/05/23 11:13 08/05/23 11:13
Last Documented Vital Signs
Temp Pulse Resp BP Pulse Ox
97.7 F 64 22 118/61 97
08/05/23 11:13 08/05/23 13:50 08/05/23 13:50 08/05/23 13:50 08/05/23 13:50
<TAMMY Garcia - Last Filed: 08/05/23 12:41>
*Critical Care Note
Total Time (30-74mins, 75-104mins- exclusive of procedures): Not Applicable
<Bladimir Vaca, DO - Last Filed: 08/05/23 14:50>
Update Note
Update Note:
Of note, Jovanna Martinez, did not participate w/ care of this patient.
ED Attending Note
<Bladimir Vaca, DO - Last Filed: 08/05/23 14:50>
-
Portions of this chart may have been created with voice recognition software.� Occasional wrong word or��sound alike� substitutions may have occurred due to the inherent limitations of voice recognition software.
Discharge Plan
Departure
Patient Disposition: Admit
Date of Disposition: 08/05/23
Time of Disposition: 11:57
Presentation/result/management discussed w/ accepting MD/DO: Hospitalist
Discharge Problem:
Intractable abdominal pain
Interventions
Interventions:
*Risk Screen - Suicide Last Done: 08/05/23 11:13
*General Assessment Last Done: 08/05/23 11:13
*Neglect/Abuse Screening Last Done: 08/05/23 11:13
ED- Fall Risk Assessment Last Done: 08/05/23 12:30
FS-Owqjyq-Jwycdjhrks Assessment Last Done: 08/05/23 12:30
--- NOTE | 2023-08-05 11:38 | EDRN ---
Dr. Vaca in room w/pt at this time.
[2023-08-05 11:42] LABS: ALT (SGPT) 26 U/L (0-50); AST (SGOT) 27 U/L (17-59); Alkaline Phosphatase 92 U/L (38-126); Blood Urea Nitrogen 14 mg/dl (9-20); Calcium 10.2 mg/dl (8.4-10.2); Carbon Dioxide 28 mmol/L (22-30); Chloride 98 mmol/L (98-107); Glucose 99 mg/dl (70-99); Lipase 54 U/L (23-300); Potassium 4.9 mmol/L (3.5-5.1); Sodium 137 mmol/L (135-145); Total Bilirubin 0.9 mg/dl (0.2-1.3); Total Protein 6.7 g/dl (6.3-8.2); eGFR > 60.00
--- NOTE | 2023-08-05 12:03 | HPS.HSE ---
Addendum entered and electronically signed by Frankie Horner MD 08/05/23 13:15:
I will obtain an MRI of the abdomen which is the only imaging that has not been performed as yet for evaluation of his presentation the last several months
Addendum entered and electronically signed by Frankie Horner MD 08/05/23 13:12:
I saw and examined the patient.
The COUNTERINTELLIGENCE ANALYST or PA's note was reviewed and I agree with the note.
Comment: 78-year-old male who was at numerous follow-up evaluation since mid May for recurrent abdominal pain at first thought to have been in relation to attempts at weight loss with GLP-1' Zepbound since that time the patient has had recurrent
abdominal pain poor appetite anytime he tries to eat or drink he has referred pain to his epigastrium has not had a bowel movement in 10 days. He has had numerous CT scans over that period of time at varying times has had mildly elevated lipase all
of which have been self-limited he also has a large direct right inguinal hernia that is been reducible with no evidence of incarceration or intestinal obstruction. Unrelated and his list of medications is his dosage of Dilaudid that he takes
orally on a regular basis he has been unable to take any of his other medications including his nadolol or tamsulosin due to even drinking water with his medications give him abdominal pain and bloating. The abdominal pain although may have had
some relation to the GLP-1 abdominal pain certainly predated its usage. Patient to his knowledge has never had an upper endoscopy. He has been seen by Dr. Kristi Kelley his primary care provider who suggested admission and further GI workup here.
As described abdominal discomfort especially in the epigastrium almost immediately after eating even at as little as a drink of water with his medications.
Patient on inspection does not look to be overly in distress from pain although has palpable epigastric pain/he was given a dosage of 1 mg IV Dilaudid here in the ED and his pulse ox dropped in to the high 80s and now at 94% on 2 L.
His abdominal examination is protuberant but soft and is exhibiting epigastric tenderness on deep palpation. Right inguinal hernia is reducible.
Some mild lower extremity edema is noted
Laboratory profiling is actually fairly unremarkable except for mildly elevated white count of 12,000 with a left shift chemistries including LFTs and lipase are all within normal limits as were all electrolytes.
CT imaging again shows no significant findings in the pancreas or intestines earlier than the the large right inguinal hernia that is showing no signs of incarceration.
At this point diagnosis will be abdominal pain/etiology unclear
No apparent pancreatitis or intestinal issues on CT imaging
Will place him NPO and IV PPI/IV fluids
Gastroenterology consult
Patient may benefit from a esophagogastroduodenoscopy given his presentation
Questionable gastroparesis/patient is not diabetic
I would give him a dose of Relistor given his opioid dependency lately on Dilaudid which may benefit some of his obstipation although the CT imaging does not show significant stool burden
Try to minimize his narcotic intake
Original Note:
Family Physician
-
Family Physician: Chloe Kelley
Chief Complaint
-
abdominal pain
History of Present Illness
78 year old with PMH for prostate cancer presented to us with abdominal pain for past 6 months. patient stated mid lower abdominal pain associated with n/v. it got worse over one week. patient not able to tolerate any oral intake. he vomits when
ever he eats or drinks. no bowel movement for past 10 days. patient was taking Zofran and Dilaudid at home with no relief in his symptoms. denied fever, chills, chest pain, sob. denied WALTON,dizzy or syncopal episode. denied dysuria or hematuria.
admitting for further managment.
Medical History
Past Medical History
Past Medical History: Reports Other
Additional Past Medical History:
Morbid obesity
prostate cancer
Hypertension
Hyperlipidemia
Migraine
Anxiety
Past Surgical History: Reports Other
Additional Past Surgical History:
vasectomy
Social History
Tobacco: Former Smoker
Alcohol: None
Drug: None
Personal: Single
Living: Alone
Family History
Family History: Not pertinent
Allergies / Home Medications
Allergies reflects when Allergies were last updated in [employer].
Home Medications with original date entered in [employer]
Allergy/Medication List:
Allergies
Allergy/AdvReac Type Severity Reaction Status Date / Time
No Known Allergies Allergy Verified 08/05/23 11:13
Home Medications
Stool Softener Powder 1 packet PO DAILYPRN PRN constipation 07/31/23
docusate sodium 100 mg capsule (Stool Softener) 200 mg PO HS Constipation 07/31/23
famotidine 20 mg tablet (Pepcid AC) 20 mg PO HS Gastrointestinal Issue 07/31/23
loratadine 10 mg tablet (Claritin) 10 mg PO HS Allergies 07/31/23
nadolol 80 mg tablet 80 mg PO HS Blood Pressure 07/31/23
sumatriptan succinate 50 mg tablet 0 mg PO .COMPLEX migraine headache 07/31/23
tamsulosin 0.4 mg capsule 0.8 mg PO HS Urinary Issue 07/31/23
Review of Systems
-
Constitutional: Reports No Symptoms
EENT: Reports No Symptoms
Respiratory: Reports No Symptoms
Cardiac: Reports No Symptoms
Abdomen/GI: Reports Abdominal Pain, Nausea, Vomiting and Constipated
: Reports No Symptoms
Musculoskeletal: Reports No Symptoms
Skin: Reports No Symptoms
Neurological: Reports No Symptoms
Endocrine: Reports No Symptoms
Hematologic/Lymphatic: Reports No Symptoms
Psych: Reports No Symptoms
Physical Exam
Vital Signs
Vital Signs
Temp Pulse Resp BP Pulse Ox
97.7 F 72 18 111/68 96
08/05/23 11:13 08/05/23 11:13 08/05/23 11:13 08/05/23 11:13 08/05/23 11:13
Physical Exam
General: Well Developed, Well Nourished and No Apparent Distress
HEENT: NormoCephalic, Moist mucous membranes and Atraumatic
Respiratory: Clear
Cardiac: S1/S2 and Regular Rhythm; No Murmur or Rub
GI: Soft, Non Tender, Non Distended and Normal Bowel Sounds; No Organomegaly
Rectal: Deferred by Provider
Musculoskeletal: No Clubbing, No Cyanosis and No Edema
Skin: No Rash
Neuro: AO x 3 and Nonfocal/grossly intact
Psych: Calm
Laboratory Results
-
08/05/23 11:19
08/05/23 11:19
Laboratory Results
Total Bilirubin 0.9 mg/dl (0.2-1.3) 08/05/23 11:19
AST 27 U/L (17-59) 08/05/23 11:19
ALT 26 U/L (0-50) 08/05/23 11:19
Alkaline Phosphatase 92 U/L (38-126) 08/05/23 11:19
Lipase 54 U/L (23-300) 08/05/23 11:19
Data Reviewed
-
CT Scan: Report Reviewed by me
Lab Data: Labs Reviewed by me
Impression/Plan
-
# Abdominal pain unclear cause
-WBC 12.1
-CT abdomen pelvis 07/30 with impression of No pancreatic or peripancreatic inflammatory changes to suggest acute pancreatitis.Possible small simple parapelvic left renal cysts. Small nonobstructing right renal calculus. Symmetric renal
excretion.Limited evaluation of intestinal tract without oral contrast and with virtually completely empty sigmoid colon. No right lower quadrant or left lower quadrant inflammatory changes, intestinal obstruction or free air.Right inguinal hernia
again seen containing unremarkable loop of small bowel, unchanged.
-Patient received Pepcid, Dilaudid, Zofran in ER
-will keep patient NPO
-Zofran prn for n/v
Dilaudid prn for pain
-obtain MRI of abdomen
-GI consulted
#constipation likely opioid induced
-stool softeners as needed.
# Hypertension
-Blood pressure stable in ER
-Nadolol continued
# History of migraines
-Patient is on sumatriptan
# History of prostate cancer
# BPH
-Flomax continued
# DVT prophylaxis
-Lovenox
# CODE STATUS
-Full code
--- NOTE | 2023-08-05 12:10 | EDRN ---
[employer] ASSEMBLER PING PONG TABLE in room w/ pt at this time.
[2023-08-05 12:22] LABS: Lactic Acid 1.6 mmol/L (0.7-2.0)
[2023-08-05] MEDS: NSS 1000 IV ×2 (12:22→17:43)
[2023-08-05] MEDS: DILAUDID 1 MG IV (12:24)
[2023-08-05] MEDS: TORADOL 15 MG IV (12:24)
--- NOTE | 2023-08-05 12:24 | EDRN ---
Upon administration of dilaudid pt sighed in a satisfactory manner and said, 'I have not had this kind of relief for my pain in 10 days.'
[2023-08-05] MEDS: PEPCID 20 MG IV (12:25)
[2023-08-05] MEDS: ZOFRAN 4 MG IV (12:25)
--- NOTE | 2023-08-05 12:39 | EDRN ---
Hospitalist in room w/ pt at this time.
--- NOTE | 2023-08-05 12:45 | EDRN ---
Pt states pain is a 3-4/10 now. Pt was placed on oxygen via NC for POX 84% on room air.
--- NOTE | 2023-08-05 13:42 | EDRN ---
Pharmacy called for Relistor at this time.
--- NOTE | 2023-08-05 13:50 | EDRN ---
Oxygen discontinued at this time. Pt has POX 907%. Pt states pain is non existent at this time at 0/10.
[2023-08-05] MEDS: RELISTOR 8 MG SC (13:51)
--- NOTE | 2023-08-05 15:00 | EDRN ---
Pt is performing MRI interview at this time.
[2023-08-05] MEDS: LOVENOX 40 MG SC (17:51)
[2023-08-05 20:43] LABS: Urine Albumin Trace (Neg - Trace); Urine Bilirubin 1+ (Negative); Urine Character Clear (Clear); Urine Color Yellow; Urine Glucose Negative (Negative); Urine Ketone 2+ (Negative); Urine Leukocyte Trace (Negative); Urine Nitrite Negative (Negative); Urine Occult Blood Negative (Negative); Urine Urobilinogen 2+ (Neg - 1+)
[2023-08-05 20:56] LABS: Urine Bacteria Few (Negative); Urine Mucus Many; Urine Red Blood Cell 0-2 /HPF (0-2); Urine Squamous Cell 0-2 /LPF (Few); Urine White Cell 0-2 /HPF (0-5)
[2023-08-05] MEDS: FLOMAX 0.800000000000000044 MG PO (21:15)
[2023-08-05] MEDS: CORGARD 80 MG PO (21:15)
[2023-08-05] MEDS: PROTONIX IV 40 MG IV (21:15)
[2023-08-05] MEDS: NSS (PRESERVATIVE FREE) 10 ML IV (21:16)
[2023-08-06] MEDS: NSS 1000 IV ×2 (05:25→19:16)
[2023-08-06 07:30] VITALS: BP 124/67
[2023-08-06 08:00] LABS: Hemoglobin 13.9 g/dL (13.0-18.0); Mean Corp Hgb Conc. 33.1 g/dL (33.0-37.0); Mean Corpuscular Hgb 27.7 pg (27.0-31.0); Mean Corpuscular Volume 83.8 fL (80.0-94.0); Mean Platelet Volume 11.5 fL (7.4-10.4); Platelet Count 153 10^3/uL (130-400); Red Blood Cell Count 5.01 10^6/uL (4.70-6.10); Red Cell Dist. Width 14.5 % (11.5-14.5); White Blood Cell Count 7.3 10^3/uL (4.8-10.8)
[2023-08-06 08:11] LABS: ALT (SGPT) 24 U/L (0-50); AST (SGOT) 23 U/L (17-59); Albumin 3.1 g/dl (3.5-5.0); Alkaline Phosphatase 74 U/L (38-126); Blood Urea Nitrogen 15 mg/dl (9-20); Calcium 9.2 mg/dl (8.4-10.2); Carbon Dioxide 24 mmol/L (22-30); Chloride 103 mmol/L (98-107); Direct Bilirubin 0.3 mg/dl (0.0-0.4); Estimated Creatinine Clearance 102 ml/min; Glucose 80 mg/dl (70-99); Potassium 4.2 mmol/L (3.5-5.1); Sodium 137 mmol/L (135-145); Total Bilirubin 0.8 mg/dl (0.2-1.3); Total Protein 5.5 g/dl (6.3-8.2); eGFR > 60.00
[2023-08-06] MEDS: PROTONIX IV 40 MG IV ×2 (08:38→20:52)
[2023-08-06] MEDS: NSS (PRESERVATIVE FREE) 10 ML IV ×2 (08:38→20:53)
[2023-08-06 09:04] LABS: Hepatitis C Antibody Negative (Negative)
--- NOTE | 2023-08-06 09:54 | W.PN.HOSP.TC ---
Today's Communication/Plan
-
Will await MRI of the abdomen and GI input
Unclear why he has continued abdominal pain
Consideration toward gastroparesis also
Assessment / Plan
Assessment / Plan
78 year old with PMH for prostate cancer presented to us with abdominal pain for past 6 months. patient stated mid lower abdominal pain associated with n/v. it got worse over one week. patient not able to tolerate any oral intake. he vomits when
ever he eats or drinks. no bowel movement for past 10 days. patient was taking Zofran and Dilaudid at home with no relief in his symptoms. denied fever, chills, chest pain, sob. denied WALTON,dizzy or syncopal episode. denied dysuria or hematuria.
admitting for further managment.
# Abdominal pain unclear cause
-WBC 12.1
-CT abdomen pelvis 07/30 with impression of No pancreatic or peripancreatic inflammatory changes to suggest acute pancreatitis.Possible small simple parapelvic left renal cysts. Small nonobstructing right renal calculus. Symmetric renal
excretion.Limited evaluation of intestinal tract without oral contrast and with virtually completely empty sigmoid colon. No right lower quadrant or left lower quadrant inflammatory changes, intestinal obstruction or free air.Right inguinal hernia
again seen containing unremarkable loop of small bowel, unchanged.
-Patient received Pepcid, Dilaudid, Zofran in ER
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
-will keep patient NPO>> liquids after MRI
-Zofran prn for n/v
Dilaudid prn for pain
-obtain MRI of abdomen
-GI consulted
#constipation likely opioid induced
-stool softeners as needed.
-Presently had complete relief of abdominal pain after receiving a dosage of Relistor which is the only medication initially made
# Hypertension
-Blood pressure stable in ER
-Nadolol continued
# History of migraines
-Patient is on sumatriptan
# History of prostate cancer
# BPH
-Flomax continued
# DVT prophylaxis
-Lovenox
# CODE STATUS
-Full code
Anticipated Discharge: 24 - 48 hours
Subjective/Interval History
-
Date of Service: August 05
States his pain is almost gone overnight for the first time in over a week has not moved his bowels but but feels like he can pass gas.
Objective Data
-
Labs:
Laboratory Results
08/06/23
07:19
WBC 7.3
Hgb 13.9
Hct 42.0
Plt Count 153 D
Sodium 137
Potassium 4.2
Chloride 103
Carbon Dioxide 24
BUN 15
Creatinine 0.9
Glucose 80
Calcium 9.2
Total Bilirubin 0.8
AST 23
ALT 24
Alkaline Phosphatase 74
Vital Signs:
Vital Signs
Temp Pulse Resp BP Pulse Ox
98.0 F 60 16 124/67 94
08/06/23 07:30 08/06/23 07:30 08/06/23 07:30 08/06/23 07:30 08/06/23 07:30
I&O
08/05/23 08/06/23 08/07/23
06:59 06:59 06:59
Intake Total 960 / 960
Balance 960 / 960
Review of Systems
-
History Source: Patient
Respiratory: Reports No Symptoms
Cardiac: Reports No Symptoms
Abdomen/GI: Reports Abdominal Pain and Constipated
Physical Exam
-
General: Morbidly Obese
HEENT: Normocephalic
Respiratory: Clear to Auscultation
Cardiac: Regular Rhythm
GI: Soft, Nontender and Tender; Negative Normal Bowel Sounds
Psych: Calm
Data Reviewed
-
Total Time Spent with Patient (in minutes): 56
Labs: Labs Reviewed by me
[2023-08-06] MEDS: NSS (PRESERVATIVE FREE) 0.5 ML IV (10:44)
[2023-08-06] MEDS: ATIVAN 1 MG IV (10:44)
[2023-08-06] MEDS: MIRALAX 17 GRAMS PO (13:04)
[2023-08-06 14:50] VITALS: BP 127/62
--- NOTE | 2023-08-06 14:56 | CM ---
manager privacy reviewed patient's chart and patient lives alone in a 2 story home, with one step to enter, patient is independent with adl's and ambulation, no dme, patient has a prescription plan and use [facility].
PCP: Chloe Kelley
Plan; Home when stable. no needs.
--- NOTE | 2023-08-06 15:28 | CON.GI ---
Addendum entered and electronically signed by Estella Heller DO 08/06/23 16:38:
I saw and examined the patient.
The COLLAR BAND CREASER or PA's note was reviewed and I agree with the note.
Comment:
Joe is a 78-year-old male with past medical history of prostate cancer and recent treatment with Zepbound who presents with acute on chronic abdominal pain. He has had multiple presentations over the last few weeks which all started after
starting on Zepbound He reports receiving narcotics in the ER with resolution. He was symptom-free for the last 3 weeks until he had acute onset of pain. Describes it in his lower abdomen. Also notes no bowel movement in the last [address]
abdomen pelvis performed on 07/30 with IV contrast only shows possible small simple parapelvic left renal cyst, nonobstructing right renal calculus, right inguinal hernia containing unremarkable loop of small bowel which is unchanged, otherwise no
evidence of acute process, free air, inflammation or obstruction.
He has had CTs performed on 06/15/23, 07/10/23, 07/31/23 which were largely unremarkable for acute process that may be contributing to his pain. MRI abdomen performed today, shows moderate circumferential wall thickening in the duodenal bulb, D2,
surrounded by moderate inflammation, edema in HOP and in the peripancreatic soft tissues around the pancreatic head and duodenum. No evidence of PD dilation or acute peripancreatic fluid collection. Mild air distension of the ascending and
transverse colon. No ascites. Interestingly, his pain is lower abdomen, almost in a band like distribution, and not in the epigastrium. That said, above findings certainly warrant further evaluation. Will plan to perform EGD tomorrow. Recommend PPI
BID. NPO after midnight.
I suspect his constipation is also playing a role, given no BM in the last 10 days. Recommend starting bowel regimen.
Original Note:
Consultation
-
Date/Time Consultation Requested: 08/05/23
Date/Time Consultation Performed: 08/05/23
Requesting Provider: TAMMY Gregg
Performing Provider: TAMMY Millan, Eugenia Schwatz, DO
Reason for Consultation: abdominal pain
Medical History
Chief Complaint / HPI
Chief Complaint: abdominal pain with nausea/vomiting
History of Present Illness:
Pt is a 78yo with hx prostate CA with prior radiation and hormonal therapy, HTN, BPH hyperlipidemia, anxiety, obesity, migraines, presents with abdominal pain with nausea and vomiting. In reviewing with patient he has well visit with PCP in
May. He was doing well be discussed wt loss with hx obesity. He started Zepbound as cost was high and he was self pay for meds. He began with nausea/vomiting and severe abdominal pain with inability to eat. He has several admission and ER
visit with recurrent flares of symptoms. He had stopped Zepbound after second dose weeks ago and still with symptoms. He had mild elevated lipase in May and multiple CT completed over last few weeks with duodenal inflammation, large
nonobstructive right inguinal hernia, non obstructive renal stones. He completed follow up MRI today with noted Moderate circumferential wall thickening in the duodenal bulb and 2nd portion of the duodenum surrounded by moderate inflammation.
Diagnostic possibilities are (1) acute peptic ulcer disease or (2) infectious or inflammatory duodenitis. No evidence for choledocholithiasis, biliary obstruction, cholelithiasis, or acute cholecystitis. Severe atrophy of the left lobe of the
liver. Mild splenomegaly and multiple small (probably benign) splenic lesions and lumbar DDD. Aleve use 1 time per week.
Pt admits to 37 lb wt loss since May. He describes feeling well in AM then worse as soon as eating. Improved with fasting. He has has constipation with eating less but some stool with laxative use. he denies dysphagia, GERD, blood or
black in stools. + last colonoscopy 5-6 years ago at [facility]. No prior EGD. Pt was taking Zofran, Reglan, tramadol, and diluadid prior to admission for pain.
Past Medical History
Past Medical History: Cancer (prostate CA), HTN, Hypercholesterolemia, Psychiatric (anxiety ) and Other (obesity, migraines, BPH)
Past Surgical History: Other (vastectomy)
Social History
Tobacco: Former Smoker
Alcohol: None (some increased ETOH in past)
Drug: None
Personal:
Living: Alone
Employment: Retired
Family History
Family History: Other (no family hx colon CA or polyps)
Allergies / Home Medications
Allergy/AdvReac Type Severity Reaction Status Date / Time
No Known Allergies Allergy Verified 08/05/23 11:13
�Medication �Instructions �Recorded
Stool Softener Powder 1 packet PO DAILYPRN PRN 07/31/23
constipation
docusate sodium 100 mg capsule 200 mg PO HS Constipation 07/31/23
(Stool Softener)
famotidine 20 mg tablet (Pepcid AC) 20 mg PO HS Gastrointestinal Issue 07/31/23
loratadine 10 mg tablet (Claritin) 10 mg PO HS Allergies 07/31/23
nadolol 80 mg tablet 80 mg PO HS Blood Pressure 07/31/23
sumatriptan succinate 50 mg tablet 0 mg PO .COMPLEX migraine headache 07/31/23
tamsulosin 0.4 mg capsule 0.8 mg PO HS Urinary Issue 07/31/23
Review of Systems
-
History Source: Patient
Constitutional: Reports Weight Loss and Fatigue
Abdomen/GI: Reports Abdominal Pain, Nausea, Vomiting and Constipated
: Reports No Symptoms
Musculoskeletal: Reports No Symptoms
Skin: Reports No Symptoms
Neurological: Reports Weakness
Endocrine: Reports No Symptoms
Hematologic/Lymphatic: Reports No Symptoms
Vital Signs
Temp Pulse Resp BP Pulse Ox
98.1 F 67 16 127/62 95
08/06/23 14:50 08/06/23 14:50 08/06/23 14:50 08/06/23 14:50 08/06/23 14:50
Physical Exam
Exam
General: Well Developed, Well Nourished and No Apparent Distress
HEENT: Normocephalic and Anicteric
Respiratory: Clear
Cardiac: Regular Rhythm
GI: Soft, Non Distended and Tender (minimal )
Musculoskeletal: No Clubbing and No Cyanosis
Skin: Warm and Dry
Neuro: Awake, Alert and AO x 3
Psych: Calm
Results
WBC 7.3 10^3/uL (4.8-10.8) 08/06/23 07:19
Hgb 13.9 g/dL (13.0-18.0) 08/06/23 07:19
Hct 42.0 % (39.0-52.0) 08/06/23 07:19
MCV 83.8 fL (80.0-94.0) 08/06/23 07:19
Plt Count 153 10^3/uL (130-400) D 08/06/23 07:19
Absolute Neuts (auto) 9.8 10^3/uL (1.4-6.5) H 08/05/23 11:19
Sodium 137 mmol/L (135-145) 08/06/23 07:19
Potassium 4.2 mmol/L (3.5-5.1) 08/06/23 07:19
Chloride 103 mmol/L (98-107) 08/06/23 07:19
Carbon Dioxide 24 mmol/L (22-30) 08/06/23 07:19
BUN 15 mg/dl (9-20) 08/06/23 07:19
Creatinine 0.9 mg/dL (0.7-1.3) 08/06/23 07:19
Calcium 9.2 mg/dl (8.4-10.2) 08/06/23 07:19
Total Bilirubin 0.8 mg/dl (0.2-1.3) 08/06/23 07:19
AST 23 U/L (17-59) 08/06/23 07:19
ALT 24 U/L (0-50) 08/06/23 07:19
Alkaline Phosphatase 74 U/L (38-126) 08/06/23 07:19
Lipase 54 U/L (23-300) 08/05/23 11:19
Hepatitis C Antibody Negative (Negative) 08/06/23 07:19
Diagnostic Image Results:
06/15/23 CT A/p
1. No definite acute process. No free air or free fluid.
2. Decompressed bowel likely related to diarrhea and vomiting. No focal area of abnormality. No obstruction. Subtle edema adjacent to the duodenum may represent mild inflammation. Please correlate with laboratory values.
3. Appendix within normal limits.
4. Large right inguinal hernia containing loops of nonobstructed bowel.
5. Nonobstructed 3 mm calcification in the right kidney.
07/10/23 CT Abd/pelvis W Iv Cont
1. Pancreas is of normal CT appearance. Inflammatory change adjacent to the duodenum and head of the pancreas seen on prior CT has resolved.
2. Right-sided nephrolithiasis without hydronephrosis.
3. Large direct right inguinal hernia, containing a loop of small bowel. No evidence of incarceration or intestinal obstruction.
07/31/23 CT Abd/pelvis W Iv Cont
No pancreatic or peripancreatic inflammatory changes to suggest acute pancreatitis.
Possible small simple parapelvic left renal cysts. Small nonobstructing right renal calculus. Symmetric renal excretion.
Limited evaluation of intestinal tract without oral contrast and with virtually completely empty sigmoid colon. No right lower quadrant or left lower quadrant inflammatory changes, intestinal obstruction or free air.
Right inguinal hernia again seen containing unremarkable loop of small bowel, unchanged.
08/06/23 MR Abdomen Without Contrast
1. Moderate circumferential wall thickening in the duodenal bulb and 2nd portion of the duodenum surrounded by moderate inflammation. Diagnostic possibilities are (1) acute peptic ulcer disease or (2) infectious or inflammatory duodenitis.
2. No evidence for choledocholithiasis, biliary obstruction, cholelithiasis, or acute cholecystitis.
3. Severe atrophy of the left lobe of the liver.
4. Mild splenomegaly and multiple small (probably benign) splenic lesions.
5. Severe discogenic degenerative disease and facet joint arthrosis in the lower lumbar spine.
Prior GI Procedures:
EGD: none
Colonoscopy: 5-6 years ago normal [facility]
Assessment / Plan
-
Pt is a 78yo with hx prostate CA with prior radiation and hormonal therapy, HTN, BPH hyperlipidemia, anxiety, obesity, migraines, presents with abdominal pain with nausea and vomiting. In reviewing with patient he has well visit with PCP in
May. He was doing well be discussed wt loss with hx obesity. He started Zepbound as cost was high and he was self pay for meds. He began with nausea/vomiting and severe abdominal pain with inability to eat. He has several admission and ER
visit with recurrent flares of symptoms. He had stopped Zepbound after second dose weeks ago and still with symptoms. He had mild elevated lipase in May and multiple CT completed over last few weeks with duodenal inflammation, large
nonobstructive right inguinal hernia, non obstructive renal stones. He completed follow up MRI today with noted Moderate circumferential wall thickening in the duodenal bulb and 2nd portion of the duodenum surrounded by moderate inflammation.
Diagnostic possibilities are (1) acute peptic ulcer disease or (2) infectious or inflammatory duodenitis. No evidence for choledocholithiasis, biliary obstruction, cholelithiasis, or acute cholecystitis. Severe atrophy of the left lobe of the
liver. Mild splenomegaly and multiple small (probably benign) splenic lesions and lumbar DDD. Aleve use 1 time per week.
-nausea/vomiting/ abdominal pain
-MRI and prior CT with duodenal inflammation
-obesity with recent Zepbound use stopped several week ago
-large right inguinal hernia
-constipation
-minimal leukocytosis
-mild lipase elevation in May
other med problems:
-HTN
-migraines
-prostate CA with prior radiation, hormonal therapy
-migraines
PLAN:
etiology of symptoms with concern for duodenal inflammation - PUD, enteritis vs other
plan for EGD in AM
will review imaging if any SB noted in hernia area
ok for full liquid diet then NPO
pain control
cont PPI BID
NSAID avoidance
PRN shruthi, dulcolax, Miralax
will follow
-
-
Thank you for consultation and allowing me to participate in the patient's care. Please call the risk assessment consultant GI physician during the after hours with any questions or concerns.
[2023-08-06] MEDS: LOVENOX SC (16:37)
[2023-08-06 20:49] VITALS: BP 104/62
[2023-08-06] MEDS: FLOMAX 0.800000000000000044 MG PO (20:53)
[2023-08-06 21:48] VITALS: BP 137/66
[2023-08-06] MEDS: CORGARD 80 MG PO (21:48)
[2023-08-06 23:19] VITALS: BP 113/68
[2023-08-07] VITALS (9 sets, daily range): BP systolic 100–150; BP diastolic 58–75
--- NOTE | 2023-08-07 03:23 | DOWNTIME ---
There was a [employer] Upper And Bottom Lacer Hand Downtime on 08/06/2023 from 0100 to 08/07/2023 at 0300. Downtime documentation of patient's care, including medication administrations, has been reconciled in the electronic record per guidelines. Refer to the
patient's paper chart under the miscellaneous tab to see printed paper medication records and downtime forms.
[2023-08-07 07:00] LABS: Hematocrit 40.9 % (39.0-52.0); Hemoglobin 13.4 g/dL (13.0-18.0); Mean Corp Hgb Conc. 32.8 g/dL (33.0-37.0); Mean Corpuscular Hgb 27.6 pg (27.0-31.0); Mean Corpuscular Volume 84.2 fL (80.0-94.0); Mean Platelet Volume 11.1 fL (7.4-10.4); Platelet Count 142 10^3/uL (130-400); Red Blood Cell Count 4.86 10^6/uL (4.70-6.10); Red Cell Dist. Width 14.3 % (11.5-14.5); White Blood Cell Count 6.3 10^3/uL (4.8-10.8)
[2023-08-07 07:39] LABS: ALT (SGPT) 27 U/L (0-50); AST (SGOT) 26 U/L (17-59); Albumin 2.9 g/dl (3.5-5.0); Alkaline Phosphatase 74 U/L (38-126); Blood Urea Nitrogen 12 mg/dl (9-20); Calcium 9.2 mg/dl (8.4-10.2); Carbon Dioxide 24 mmol/L (22-30); Chloride 106 mmol/L (98-107); Direct Bilirubin 0.4 mg/dl (0.0-0.4); Estimated Creatinine Clearance 102 ml/min; Glucose 88 mg/dl (70-99); Potassium 4.2 mmol/L (3.5-5.1); Sodium 136 mmol/L (135-145); Total Bilirubin 0.6 mg/dl (0.2-1.3); Total Protein 5.3 g/dl (6.3-8.2); eGFR > 60.00
[2023-08-07] MEDS: NSS 1000 IV (08:16)
[2023-08-07] MEDS: NSS (PRESERVATIVE FREE) 10 ML IV (08:17)
[2023-08-07] MEDS: PROTONIX IV 40 MG IV (08:17)
--- NOTE | 2023-08-07 09:42 | W.PN.HOSP.TC ---
Today's Communication/Plan
-
For EGD today
PPI IV twice daily
And discontinue IV fluids at this point
Based on results of EGD transition to oral PPI per GI
Placed on bowel regime
Assessment / Plan
Assessment / Plan
78 year old with PMH for prostate cancer presented to us with abdominal pain for past 6 months. patient stated mid lower abdominal pain associated with n/v. it got worse over one week. patient not able to tolerate any oral intake. he vomits when
ever he eats or drinks. no bowel movement for past 10 days. patient was taking Zofran and Dilaudid at home with no relief in his symptoms. denied fever, chills, chest pain, sob. denied WALTON,dizzy or syncopal episode. denied dysuria or hematuria.
admitting for further managment.
# Abdominal pain unclear cause
-WBC 12.1
-CT abdomen pelvis 07/30 with impression of No pancreatic or peripancreatic inflammatory changes to suggest acute pancreatitis.Possible small simple parapelvic left renal cysts. Small nonobstructing right renal calculus. Symmetric renal
excretion.Limited evaluation of intestinal tract without oral contrast and with virtually completely empty sigmoid colon. No right lower quadrant or left lower quadrant inflammatory changes, intestinal obstruction or free air.Right inguinal hernia
again seen containing unremarkable loop of small bowel, unchanged.
-Patient received Pepcid, Dilaudid, Zofran in ER
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
-will keep patient NPO>> liquids after MRI
-Zofran prn for n/v
Dilaudid prn for pain
- MRI of abdomen>>> exhibited significant inflammatory duodenitis
-GI consulted/EGD to assess duodenitis further
#constipation likely opioid induced
-stool softeners as needed.
-Presently had complete relief of abdominal pain after receiving a dosage of Relistor which is the only medication initially made/PPI also may have helped
# Hypertension
-Blood pressure stable in ER
-Nadolol continued
# History of migraines
-Patient is on sumatriptan
# History of prostate cancer
# BPH
-Flomax continued
# DVT prophylaxis
-Lovenox
# CODE STATUS
-Full code
Anticipated Discharge: 24 - 48 hours
Subjective/Interval History
-
Date of Service: August 07, 2023
Mr. Hodgson continues to maintain his abdominal pain is improved he has not moved his bowels for some time. He is for EGD later this morning.
Objective Data
-
Labs:
Laboratory Results
08/07/23
06:30
WBC 6.3
Hgb 13.4
Hct 40.9
Plt Count 142
Sodium 136
Potassium 4.2
Chloride 106
Carbon Dioxide 24
BUN 12
Creatinine 0.9
Glucose 88
Calcium 9.2
Total Bilirubin 0.6
AST 26
ALT 27
Alkaline Phosphatase 74
Vital Signs:
Vital Signs
Temp Pulse Resp BP Pulse Ox
98.1 F 61 20 137/69 98
08/07/23 07:25 08/07/23 07:25 08/07/23 07:25 08/07/23 07:25 08/07/23 07:25
I&O
08/06/23 08/07/23 08/08/23
06:59 06:59 06:59
Intake Total 960 / 960 1879 / 1879
Output Total 50 / 50
Balance 960 / 960 183 / 183
Review of Systems
-
All other systems: Not reviewed unless documented
Abdomen/GI: Reports Abdominal Pain (Improved in the epigastric region)
Physical Exam
-
General: Morbidly Obese
HEENT: Normocephalic
Respiratory: Clear to Auscultation
Cardiac: Regular Rhythm
GI: Nontender; Negative Normal Bowel Sounds
Psych: Calm
Data Reviewed
-
Total Time Spent with Patient (in minutes): 45
MRI: Report Reviewed by me (Showed moderate circumferential wall thickening of the duodenal bulb and second portion of the duodenum surrounded by moderate inflammation need to rule out PUD versus infectious or inflammatory duodenitis. Download of
severe atrophy of the left lobe of liver)
Labs: Labs Reviewed by me
[2023-08-07] MEDS: PROTONIX 100 IV ×2 (13:13→23:25)
--- NOTE | 2023-08-07 15:51 | CM ---
Chart reviewed home when stable.
Plan; Home when stable.
[2023-08-07] MEDS: LOVENOX SC (16:25)
[2023-08-07] MEDS: CORGARD 80 MG PO (22:14)
[2023-08-07] MEDS: FLOMAX 0.800000000000000044 MG PO (22:14)
[2023-08-08 07:30] VITALS: BP 143/70
[2023-08-08] MEDS: MIRALAX PO ×2 (07:30→07:34)
[2023-08-08] MEDS: PROTONIX 100 IV (07:30)
[2023-08-08 08:05] LABS: Hematocrit 42.2 % (39.0-52.0); Hemoglobin 13.8 g/dL (13.0-18.0); Mean Corp Hgb Conc. 32.7 g/dL (33.0-37.0); Mean Corpuscular Hgb 27.7 pg (27.0-31.0); Mean Corpuscular Volume 84.6 fL (80.0-94.0); Mean Platelet Volume 11.4 fL (7.4-10.4); Platelet Count 157 10^3/uL (130-400); Red Blood Cell Count 4.99 10^6/uL (4.70-6.10); Red Cell Dist. Width 14.6 % (11.5-14.5); White Blood Cell Count 6.7 10^3/uL (4.8-10.8)
[2023-08-08 08:28] LABS: ALT (SGPT) 31 U/L (0-50); AST (SGOT) 27 U/L (17-59); Albumin 3.2 g/dl (3.5-5.0); Alkaline Phosphatase 78 U/L (38-126); Blood Urea Nitrogen 8 mg/dl (9-20); Calcium 9.4 mg/dl (8.4-10.2); Carbon Dioxide 26 mmol/L (22-30); Chloride 104 mmol/L (98-107); Direct Bilirubin 0.4 mg/dl (0.0-0.4); Estimated Creatinine Clearance 92 ml/min; Glucose 102 mg/dl (70-99); Potassium 4.2 mmol/L (3.5-5.1); Sodium 137 mmol/L (135-145); Total Bilirubin 0.8 mg/dl (0.2-1.3); Total Protein 5.7 g/dl (6.3-8.2); eGFR > 60.00
--- NOTE | 2023-08-08 10:32 | W.PN.HOSP.TC ---
Addendum entered and electronically signed by Frankie Horner MD 08/08/23 14:13:
Per GI :
Resume diet
PPI BID x 8 weeks and repeat EGD for extensive Barretts Biopsies as well as f/u of duodenal ulcer and abnormalty in D2 with possible EUS with Dr. Huerta. Our office will call patient to schedule this
Will call patient with pathology results-- will likely require indefinite PPI therapy for BE (Rx sent to pharmacy)
Bowel regimen-miralax daily and uptitrate + 2 tablets sennakot at night
Okay to discharge from a GI perspective
When offered a discharge plan for today patient wanted to wait another day to see how he does with diet after he had some lunch she had some stomach upset I did explain to him the source of inflammation in his stomach and duodenum was neck and he
will overnight and scan take some time and may not have immediate results also for his constipation while awaiting another day we will plan for a discharge tomorrow a.m.
Original Note:
Today's Communication/Plan
-
Still awaiting decision on the gastroenterology for question EUS versus being placed on PPI twice daily for further follow-up as outpatient
Continue PPI IV
Assessment / Plan
Assessment / Plan
78 year old with PMH for prostate cancer presented to us with abdominal pain for past 6 months. patient stated mid lower abdominal pain associated with n/v. it got worse over one week. patient not able to tolerate any oral intake. he vomits when
ever he eats or drinks. no bowel movement for past 10 days. patient was taking Zofran and Dilaudid at home with no relief in his symptoms. denied fever, chills, chest pain, sob. denied WALTON,dizzy or syncopal episode. denied dysuria or hematuria.
admitting for further managment.
# Abdominal pain unclear cause
-WBC 12.1
-CT abdomen pelvis 07/30 with impression of No pancreatic or peripancreatic inflammatory changes to suggest acute pancreatitis.Possible small simple parapelvic left renal cysts. Small nonobstructing right renal calculus. Symmetric renal
excretion.Limited evaluation of intestinal tract without oral contrast and with virtually completely empty sigmoid colon. No right lower quadrant or left lower quadrant inflammatory changes, intestinal obstruction or free air.Right inguinal hernia
again seen containing unremarkable loop of small bowel, unchanged.
-Patient received Pepcid, Dilaudid, Zofran in ER
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
-will keep patient NPO>> liquids after MRI
-Zofran prn for n/v
Dilaudid prn for pain
- MRI of abdomen>>> exhibited significant inflammatory duodenitis
-GI consulted/EGD showed significant grade B esophagitis underlying Patel's esophagitis normal stomach however using cratered duodenal ulcer was noted with surrounding abnormal mucosa suspicious for malignant ulcer with congestion and edema
causing deformity of the lumen and partial obstruction. Biopsies were taken
#constipation likely opioid induced
-stool softeners as needed.
-Presently had complete relief of abdominal pain after receiving a dosage of Relistor which is the only medication initially made/PPI also may have helped
# Hypertension
-Blood pressure stable in ER
-Nadolol continued
# History of migraines
-Patient is on sumatriptan
# History of prostate cancer
# BPH
-Flomax continued
# DVT prophylaxis
-Lovenox
# CODE STATUS
-Full code
Anticipated Discharge: Within 24 hours
Subjective/Interval History
-
Date of Service: August 08, 2023
He is anxious to get some answers I tried to review the results of the EGD but still some question on how GI will be proceeding today
Objective Data
-
Labs:
Laboratory Results
08/08/23
07:11
WBC 6.7
Hgb 13.8
Hct 42.2
Plt Count 157
Sodium 137
Potassium 4.2
Chloride 104
Carbon Dioxide 26
BUN 8 L
Creatinine 1.0
Glucose 102 H
Calcium 9.4
Total Bilirubin 0.8
AST 27
ALT 31
Alkaline Phosphatase 78
Vital Signs:
Vital Signs
Temp Pulse Resp BP Pulse Ox
98.1 F 59 18 143/70 95
08/08/23 07:30 08/08/23 07:30 08/08/23 07:30 08/08/23 07:30 08/08/23 08:55
I&O
08/07/23 08/08/23 08/09/23
06:59 06:59 06:59
Intake Total 1880 / 1880 1760 / 1760
Output Total 50 / 50 1300 / 1300
Balance 1830 / 1830 460 / 460
Review of Systems
-
History Source: Patient
Constitutional: Reports No Symptoms
EENT: Reports No Symptoms Reported
Respiratory: Reports No Symptoms
Abdomen/GI: Reports Abdominal Pain (Significantly improved no BM as yet)
Physical Exam
-
General: Morbidly Obese
HEENT: Normocephalic
Respiratory: Clear to Auscultation
Cardiac: Regular Rhythm
Neuro: Awake, Alert and Oriented
Psych: Calm
Data Reviewed
-
Total Time Spent with Patient (in minutes): 56
Medical Tests (Nuc Med, Echo etc): Report Reviewed by me (Reviewed results of EGD/exhibited LA grade B esophagitis with changes consistent with Patel's esophagitis/entire stomach was normal with H. pylori testing performed there is 1 oozing
cratered duodenal ulcer that was found in the duodenal bulb surrounded by abnormal mucosa suspicious for malignant )
Labs: Labs Reviewed by me
[2023-08-08] MEDS: MIRALAX 17 GRAMS PO (12:02)
--- NOTE | 2023-08-08 12:05 | CM ---
Patient to return to home when stable.
Plan; Home when stable. No needs.
--- NOTE | 2023-08-08 12:53 | W.PN.GI.CBS2 ---
Addendum entered and electronically signed by Estella Heller DO 08/13/23 13:02:
Dx: Acute duodenal ulcer
Original Note:
Today's Communication / Plan
-
PPI BID x 6-8 weeks and repeat EGD +/- EUS with Dr. Huerta. GI will sign off, please call with questions.
Assessment / Plan
-
Pt is a 78yo with hx prostate CA with prior radiation and hormonal therapy, HTN, BPH hyperlipidemia, anxiety, obesity, migraines, presents with abdominal pain with nausea and vomiting. In reviewing with patient he has well visit with PCP in
May. He was doing well be discussed wt loss with hx obesity. He started Zepbound as cost was high and he was self pay for meds. He began with nausea/vomiting and severe abdominal pain with inability to eat. He has several [facility] admission and ER
visit with recurrent flares of symptoms. He had stopped Zepbound after second dose weeks ago and still with symptoms. He had mild elevated lipase in May and multiple CT completed over last few weeks with duodenal inflammation, large
nonobstructive right inguinal hernia, non obstructive renal stones. He completed follow up MRI today with noted Moderate circumferential wall thickening in the duodenal bulb and 2nd portion of the duodenum surrounded by moderate inflammation.
Diagnostic possibilities are (1) acute peptic ulcer disease or (2) infectious or inflammatory duodenitis. No evidence for choledocholithiasis, biliary obstruction, cholelithiasis, or acute cholecystitis. Severe atrophy of the left lobe of the
liver. Mild splenomegaly and multiple small (probably benign) splenic lesions and lumbar DDD. Aleve use 1 time per week.
-nausea/vomiting/ abdominal pain
-MRI and prior CT with duodenal inflammation
-obesity with recent Zepbound use stopped several week ago
-large right inguinal hernia
-constipation
-minimal leukocytosis
-mild lipase elevation in May
other med problems:
-HTN
-migraines
-prostate CA with prior radiation, hormonal therapy
-migraines
Patient is now s/p EGD with suspicion for long-segment Barretts Esophagus as well as dudoenal ulcer with mucosal deformity and abnormal mucosa in the 2nd portion of the duodenum. It is possible that the dudoenal ulcer/inflammation are causing
pancreatic inflammation/abnormality seen on MRI/MRCP. Biopsies are still pending.
Plan:
Resume diet
PPI BID x 8 weeks and repeat EGD for extensive Barretts Biopsies as well as f/u of duodenal ulcer and abnormalty in D2 with possible EUS with Dr. Huerta. Our office will call patient to schedule this
Will call patient with pathology results-- will likely require indefinite PPI therapy for BE (Rx sent to pharmacy)
Bowel regimen-miralax daily and uptitrate + 2 tablets sennakot at night
Okay to discharge from a GI perspective
Subjective
Subjective
Date of Service: August 08, 2023
Patient remains stable, reports still feeling constipated, otherwise, feels well and has not had return of the pain that brought him to the hospital. Discussed findings again from EGD. After discussion with Dr. Huerta, will treat with PPI BID and
repeat EGD +/-EUS in 6-8 weeks. Patient agreeable to this plan.
Objective
Data Reviewed
Laboratory Data:
Laboratory Results
08/08/23 07:11
08/08/23 07:11
Laboratory Results
Total Bilirubin 0.8 mg/dl (0.2-1.3) 08/08/23 07:11
AST 27 U/L (17-59) 08/08/23 07:11
ALT 31 U/L (0-50) 08/08/23 07:11
Alkaline Phosphatase 78 U/L (38-126) 08/08/23 07:11
Lipase 54 U/L (23-300) 08/05/23 11:19
Vital Signs and I&O:
Vital Signs
Temp Pulse Resp BP Pulse Ox
98.1 F 59 18 143/70 95
08/08/23 07:30 08/08/23 07:30 08/08/23 07:30 08/08/23 07:30 08/08/23 08:55
I&O
08/07/23 08/08/23 08/09/23
06:59 06:59 06:59
Intake Total 1879 / 1759
Output Total 50 / 50 1300 / 1300
Balance 1829 460 / 460
Physical Exam
Physical Exam
HEENT: Anicteric and Moist mucous membranes
Cardiology: Normal Sinus Rhythm, S1 and S2
Pulmonary: Clear
GI: Soft, Non Distended, Non Tender and Normal Bowel Sounds
Neuro: Non Focal
--- NOTE | 2023-08-08 13:35 | PN.CDI ---
CDI
- -
CDI:
Physician Documentation Request
Admit Date: 08/05/23 12:54
Dear Doctor,
Please review the following and provide your response in the progress notes.
Clinical Indicators:
Pt admitted with abdominal pain
EGD done and showed ,'...One oozing cratered duodenal ulcer was found in the duodenal bulb
surrounded by abnormal mucosa ....Chronic or unspecified duodenal ulcer with hemorrhage...'
Clarify which of the following accurately represents the Suspected acuity of the ( Duodenal ulcer ).
Acute
Chronic
Acute on Chronic
Other
Use of terms such as suspected, likely, concern for, or probable (associated with a specific diagnosis that is being evaluated, monitored, or treated as if it exists) are acceptable and can be coded in the inpatient setting, when documented at the
time of discharge.
Thank you,
Bina Kelley RN
CDI Specialist
[facility]
Please use your independent medical judgment in providing your response.
[2023-08-08 15:30] VITALS: BP 134/69
[2023-08-08] MEDS: LOVENOX 40 MG SC (17:11)
--- NOTE | 2023-08-08 18:06 | PTCARENOTE ---
Discharge order placed by Dr Horner. Dr Horner spoke w/ the patient, who did not feel comfortable leaving [facility]. He stated his daughter would be in town tomorrow to get him home. Pt tolerated his low cholesterol diet, and had a moderate
sized BM this evening. Pt feeling much better. Plans for discharge home tomorrow.
[2023-08-08] MEDS: PROTONIX 40 MG PO (20:03)
--- NOTE | 2023-08-08 20:31 | PTCARENOTE ---
Pt reported that he had a BM earlier in the day. When asked if he wanted his PRN senna, pt replied 'no thanks, I'm going to take my Miralax in the morning and will do that daily'. Pt reports mild tenderness in abdomen. Will continue to monitor
for further constipation.
[2023-08-08 23:00] VITALS: BP 115/56
[2023-08-08] MEDS: FLOMAX 0.800000000000000044 MG PO (23:08)
[2023-08-08] MEDS: CORGARD 80 MG PO (23:08)
[2023-08-09 06:30] LABS: Hematocrit 39.1 % (39.0-52.0); Hemoglobin 13.2 g/dL (13.0-18.0); Mean Corp Hgb Conc. 33.8 g/dL (33.0-37.0); Mean Corpuscular Hgb 27.6 pg (27.0-31.0); Mean Corpuscular Volume 81.6 fL (80.0-94.0); Mean Platelet Volume 10.9 fL (7.4-10.4); Platelet Count 139 10^3/uL (130-400); Red Blood Cell Count 4.79 10^6/uL (4.70-6.10); Red Cell Dist. Width 14.6 % (11.5-14.5); White Blood Cell Count 6.9 10^3/uL (4.8-10.8)
[2023-08-09 06:51] LABS: ALT (SGPT) 29 U/L (0-50); AST (SGOT) 26 U/L (17-59); Albumin 2.9 g/dl (3.5-5.0); Alkaline Phosphatase 71 U/L (38-126); Blood Urea Nitrogen 10 mg/dl (9-20); Calcium 9.1 mg/dl (8.4-10.2); Carbon Dioxide 22 mmol/L (22-30); Chloride 107 mmol/L (98-107); Direct Bilirubin 0.4 mg/dl (0.0-0.4); Estimated Creatinine Clearance 115 ml/min; Glucose 98 mg/dl (70-99); Potassium 4.5 mmol/L (3.5-5.1); Sodium 137 mmol/L (135-145); Total Bilirubin 0.7 mg/dl (0.2-1.3); Total Protein 5.4 g/dl (6.3-8.2); eGFR > 60.00
[2023-08-09 07:00] VITALS: BP 136/65
--- NOTE | 2023-08-09 09:16 | CM ---
Chart reviewed and plan is home today.
Plan; Home today.
[2023-08-09] MEDS: PROTONIX 40 MG PO (09:41)
[2023-08-09] MEDS: MIRALAX 17 GRAMS PO (09:43)
--- NOTE | 2023-08-09 10:17 | W.DS.TRANS ---
DC Summary - Program Planner
-
Discharge Instructions:
Discharge Diagnosis/Procedures Abdominal pain/nausea/vomiting
Long segment of Patel's esophagitis
Duodenal ulcer with mucosal deformity and
abnormal mucosa in second portion of duodenum
Constipation
Morbid obesity
Diet Low Cholesterol
Activity As tolerated
Driving Restrictions As prior to admission
Instructions:
Stand-Alone Forms:
Changes to Home Medications: Yes
Discharge Medications:
DC Medications w/original date entered in [facility]
loratadine 10 mg tablet (Claritin) 10 mg PO HS Allergies 07/31/23
nadolol 80 mg tablet 80 mg PO HS Blood Pressure 07/31/23
sumatriptan succinate 50 mg tablet 0 mg PO .COMPLEX migraine headache 07/31/23
tamsulosin 0.4 mg capsule 0.8 mg PO HS Urinary Issue 07/31/23
pantoprazole 40 mg tablet,delayed release 40 mg PO BID Gastrointestinal issue #60 tabs 08/08/23
polyethylene glycol 3350 17 gram oral powder packet (HealthyLax) 17 g PO DAILY Constipation #30 ea 08/08/23
sennosides 8.6 mg-docusate sodium 50 mg tablet (Senokot-S) 2 tab-cap (2 x 8.6-50 mg) PO HS Congestion #30 tabs 08/08/23
Home Medication Changes
pantoprazole 40 mg tablet,delayed release 40 mg PO BID Gastrointestinal issue #60 tabs 08/08/23
polyethylene glycol 3350 17 gram oral powder packet (HealthyLax) 17 g PO DAILY Constipation #30 ea 08/08/23
sennosides 8.6 mg-docusate sodium 50 mg tablet (Senokot-S) 2 tab-cap (2 x 8.6-50 mg) PO HS Congestion #30 tabs 08/08/23
Pending Results: Yes
Additional Pending Results:
Still pending results of EGD biopsy of stomach and esophagus follow-up with GI office for results
[2023-08-09 11:40] VITALS: BP 135/69
--- NOTE | 2023-08-09 11:50 | PTCARENOTE ---
Pt discharged to home via [employer], juan instructions reviewed and paperwork reviewed. Pt iv removed. Pt escorted to front door for [employer].
--- NOTE | 2023-08-09 12:27 | W.DCSUMMARY ---
Discharge Summary
Discharge Data
Date of Admission: 08/05/23
Date of Discharge: 08/09/23
-
Pending Results: No
Hospital Course
78-year-old male with a known history of prostate cancer with prior radiation and hormonal therapy along with hypertension BPH hyperlipidemia morbid obesity migraines presents with abdominal pain with nausea and vomiting. This has been an ongoing
issue since sometime ever since he started treatment for his obesity with 0 pound he developed persisting abdominal pain nausea vomiting and also constipation. Nausea and abdominal pain became to the point that he was unable to eat anytime after
eating developed almost immediate epigastric pain he actually stopped his found after second dose which would have been his second week of therapy with continued symptoms. He had multiple CTs over the last couple weeks showing some duodenal
inflammation and a large nonobstructive right inguinal hernia and has been reducible. He was again admitted for the purpose of obtaining an MRI of the abdomen and further diagnostic evaluations and he was placed on a PPI infusion.
MRI actually showed a significant amount of circumferential wall thickening in the duodenal bulb and second portion of the duodenum thrombi moderate inflammation. He was seen and followed by the GI service and underwent an EGD with differential
being acute peptic ulcer versus infectious or inflammatory duodenitis. Of note on MRCP there is no evidence of any choledocho choledocho cholelithiasis to infection cholelithiasis or acute cholecystitis there is an incidental note of severe atrophy
of the left lobe of the liver. Of note and interestingly the patient after being placed on IV PPI infusion had almost complete relief of his abdominal discomfort the following day.
EGD :: with suspicion for long-segment Barretts Esophagus as well as dudoenal ulcer with mucosal deformity and abnormal mucosa in the 2nd portion of the duodenum. It is possible that the dudoenal ulcer/inflammation are causing pancreatic
inflammation/abnormality seen on MRI/MRCP. Biopsies are still pending.
His ongoing constipation has been relieved by placing him on a bowel regime which will be continued
He will need follow-up with the GI service to obtain biopsy results of his Patel's esophagitis he will be continued on a PPI twice daily for the next 8 weeks he will require a follow-up EGD of the duodenal ulcer in the assessment of the
abnormality in second portion of duodenum with a possible EUS with Dr. Huerta GI office was to call the patient to schedule this but it is felt that patient will probably need indefinite PPI therapy in relation to his Patel's esophagitis that was
prominent we placed on MiraLAX daily along with uptitration of his Senokot to 2 tablets at night
Discharge Plan
-
Patient Disposition: Home (Routine Discharge)
Discharge Diagnosis/Procedures: Abdominal pain/nausea/vomiting
Long segment of Patel's esophagitis
Duodenal ulcer with mucosal deformity and abnormal mucosa in second portion of duodenum
Constipation
Morbid obesity
Large nonobstructive right inguinal hernia
Diet: Low Cholesterol
Activity: As tolerated
Driving Restrictions: As prior to admission
Referrals:
Chloe Kelley DO [Family Provider] -
Trini Bañuelos MD [Active] - in one to two months (Call for appointment to follow-up biopsy results and schedule repeat EGD)
Prescriptions:
New
polyethylene glycol 3350 [HealthyLax] 17 gram Powder In Packet
17 g PO DAILY Qty: 30 0RF
pantoprazole 40 mg Tablet,Delayed Release (Dr/Ec)
40 mg PO BID Qty: 60 0RF
sennosides-docusate sodium [Senokot-S] 8.6-50 mg tablet
2 tab-cap PO HS Qty: 30 0RF
Continued
nadolol 80 mg Tablet
80 mg PO HS
sumatriptan succinate 50 mg Tablet
0 mg PO .COMPLEX
Rx Instructions:
07/31/2023, take 1 tab at onset of headache; if no relief may repeat 1 tab after at least 2 hrs; max = 4 tabs/24 hr.
tamsulosin 0.4 mg Capsule
0.8 mg PO HS
loratadine [Claritin] 10 mg Tablet
10 mg PO HS
Discontinued
famotidine [Pepcid AC] 20 mg Tablet
20 mg PO HS
docusate sodium [Stool Softener] 100 mg Capsule
200 mg PO HS
Stool Softener Powder
1 packet PO DAILYPRN PRN (Reason: constipation)
Discharge Orders:
Discharge Patient (As Directed); Ordered 08/09/23
Ordered By: Frankie Horner
Discharge Date and Time
Discharge Date/Time: 08/09/23 11:46
Print Language: AUSTRIAN
== END 2023-08-09 11:46 | disposition home or self-care (01) | DRG 378 ==
LOC: 4 WEST ACU 12:54
PROVIDERS: Emergency Medicine; Registered Nurse; ADMITTING PHYSICIAN Internal Medicine; EMERGENCY PHYSICIAN Emergency Medicine; FAMILY PHYSICIAN Family Medicine; OTHER PHYSICIAN Internal Medicine
PROC: 0DB68ZX Excision of Stomach, Via Natural or Artificial Opening Endoscopic, Diagnostic (ICD-10-PCS; 2023-08-07)
PROC: 0DB58ZX Excision of Esophagus, Via Natural or Artificial Opening Endoscopic, Diagnostic (ICD-10-PCS; 2023-08-07)
PROC: 0DB98ZX Excision of Duodenum, Via Natural or Artificial Opening Endoscopic, Diagnostic (ICD-10-PCS; 2023-08-07)
DX: K26.0 Acute duodenal ulcer with hemorrhage (principal); F11.20 Opioid dependence, uncomplicated; K22.10 Ulcer of esophagus without bleeding; G43.909 Migraine, unspecified, not intractable, without status migrainosus; K40.90 Unilateral inguinal hernia, without obstruction or gangrene, not specified as recurrent; N40.0 Benign prostatic hyperplasia without lower urinary tract symptoms; K59.03 Drug induced constipation; E66.01 Morbid (severe) obesity due to excess calories; I10 Essential (primary) hypertension; E78.00 Pure hypercholesterolemia, unspecified; F41.9 Anxiety disorder, unspecified; T40.2X5A Adverse effect of other opioids, initial encounter; N20.0 Calculus of kidney; D72.829 Elevated white blood cell count, unspecified; M51.36 Other intervertebral disc degeneration, lumbar region; R16.1 Splenomegaly, not elsewhere classified; K22.89 Other specified disease of esophagus; K31.89 Other diseases of stomach and duodenum; Z85.46 Personal history of malignant neoplasm of prostate; Z87.891 Personal history of nicotine dependence; Z68.39 Body mass index [BMI] 39.0-39.9, adult; Z92.3 Personal history of irradiation
CPT/HCPCS: 88305; 74181; 80053; 81003; 81015; 82248; 83605; 83690; 85025; 85027; 86803; 88342; 93005; 96361; 96374; 96375; 99285

== ENCOUNTER → 2023-10-10 06:24 | Day surgery (SDC) | payer MEDICARE, OTHER, SELFPAY | LOC: GI 06:24 | PROVIDERS: ATTENDING PHYSICIAN Internal Medicine | DX: R10.13 Epigastric pain (principal); R93.3 Abnormal findings on diagnostic imaging of other parts of digestive tract; K44.9 Diaphragmatic hernia without obstruction or gangrene; K22.70 Barrett's esophagus without dysplasia; K31.89 Other diseases of stomach and duodenum; K29.80 Duodenitis without bleeding | CPT/HCPCS: 43239; 88305; 88342 ==

== ENCOUNTER → 2023-10-16 15:07 | Outpatient (REF) | payer MEDICARE, OTHER, SELFPAY | LOC: MRI 3T 15:07 | PROVIDERS: ATTENDING PHYSICIAN Physician Assistant; FAMILY PHYSICIAN Family Medicine | DX: R10.84 Generalized abdominal pain (principal) | CPT/HCPCS: 74183 ==

== ENCOUNTER → 2023-10-28 08:12 | Outpatient (REF) | payer MEDICARE, OTHER, SELFPAY ==
[2023-10-28 10:30] LABS: Hematocrit 42.8 % (39.0-52.0); Hemoglobin 14.1 g/dL (13.0-18.0); Mean Corp Hgb Conc. 32.9 g/dL (33.0-37.0); Mean Corpuscular Volume 81.8 fL (80.0-94.0); Mean Platelet Volume 11.3 fL (7.4-10.4); Platelet Count 201 10^3/uL (130-400); Red Blood Cell Count 5.23 10^6/uL (4.70-6.10); Red Cell Dist. Width 13.9 % (11.5-14.5)
[2023-10-28 11:50] LABS: Blood Urea Nitrogen 18 mg/dl (9-20); Carbon Dioxide 26 mmol/L (22-30); Chloride 103 mmol/L (98-107); Glucose 106 mg/dl (70-99); Sodium 137 mmol/L (135-145); eGFR > 60.00
== END ==
LOC: SDSPAT 08:12
PROVIDERS: ATTENDING PHYSICIAN Surgery; FAMILY PHYSICIAN Family Medicine
DX: Z01.818 Encounter for other preprocedural examination (principal)
CPT/HCPCS: 36415; 80048; 85027; 93005

== ENCOUNTER 2023-11-06 06:26 | Day surgery (SDC) | payer MEDICARE, OTHER, SELFPAY ==
[2023-10-28 10:00] VITALS: BMI 41.1
[2023-11-06] VITALS (17 sets, daily range): BP systolic 102–153; BP diastolic 50–74; BMI 40.0; BMI 39.6
[2023-11-06] MEDS: TYLENOL 1000 MG PO (12:21)
[2023-11-06] MEDS: NORMOSOL-R 1000 IV ×2 (12:22→19:19)
[2023-11-06] MEDS: SUBLIMAZE 50 MCG IV ×2 (16:45→18:16)
[2023-11-06] MEDS: SUBLIMAZE 25 MCG IV (17:01)
[2023-11-06] MEDS: DILAUDID 0.5 MG IV ×2 (17:23→17:50)
--- NOTE | 2023-11-06 18:33 | W.PN.UPDATE ---
Update Note
Progress Note Update
Patient with discomfort following surgery. PACU history administered large quantities of fentanyl. Concern for obesity hypoventilation syndrome given his morbid obesity and narcotic use. Plan for admission overnight for close monitoring of pain
and respiratory status. Daughter updated.
[2023-11-06] MEDS: TORADOL 10 MG IV (21:29)
--- NOTE | 2023-11-07 00:13 | PTCARENOTE ---
19:50 pt rec'vd from PACU, aaox3, ambulated self transferred to unit bed from PACU bed, tolertaed well, IVF in place, pt voided with use of urinal, assessment reviewed with pt, oriented to unit.
--- NOTE | 2023-11-07 07:21 | W.PN.GS2 ---
Today's Communication / Plan
-
-- Wean O2
-- DC today
Assessment / Plan
-
Patient is a 78 yo M POD#1 s/p RAL RIH repair with mesh. Post-op admission due to high narcotics in PACU and obesity hypoventilation.
Recovering well. Wean O2. Discharge today.
-- Regular diet
-- OOB/ambulate, wean O2
-- Pain control: Tylenol, Toradol, Oxycodone
-- HLIV
-- Home medications
-- DVT: Lovenox
-- DC today
Subjective Data
-
Date of Service: November 07, 2023
No complaints. Pain well controlled. Denies SOB. No nausea or emesis. Voiding.
Objective Data
-
Intake and Output
11/06/23 11/07/23 11/08/23
06:59 06:59 06:59
Intake Total 1500 / 1500
Output Total 1400 / 1400
Balance 100 / 100
Intake:
IV fluids (Total) 1500 / 1500
normosol 400 / 400
Output:
Urine, Silver 800 / 800
Urine, Voided 600 / 600
Vital Signs
Temp Pulse Resp BP Pulse Ox
97.2 F 51 18 107/53 95
11/06/23 23:11 11/06/23 23:11 11/06/23 23:11 11/06/23 23:11 11/06/23 23:11
Physical Exam
-
Gen: NAD
Abd: obese, soft, NT/ND, non-peritoneal, incisions c/d/i - no erythema, ecchymosis or drainage
--- NOTE | 2023-11-07 07:23 | W.DS.TRANS ---
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
-
Discharge Instructions:
Sleep Apnea Risk Intermediate
Discharge Diagnosis/Procedures Robotic RIGHT inguinal hernia repair with mesh
Diet Regular
Activity No strenuous activity
Additional Activity No heavy lifting (>20 lbs) or strenuous
activities for 4 weeks postoperatively
Driving Restrictions No driving if too sore or taking narcotics
Bathing Restrictions OK to Shower
Wound Care Keep incisions clean and dry. Glue will flake
off in 2 to 3 weeks. Stitches will dissolve.
Use ice to the abdomen and groin to reduce any
bruising or swelling.
Instructions:
Stand-Alone Forms:
Changes to Home Medications: No
Discharge Medications:
DC Medications w/original date entered in [facility]
loratadine 10 mg tablet (Claritin) 10 mg PO HS Allergies 07/31/23
nadolol 80 mg tablet 80 mg PO HS Blood Pressure 07/31/23
sumatriptan succinate 50 mg tablet 50 mg PO PRN PRN mirgraines 07/31/23
tamsulosin 0.4 mg capsule 0.8 mg PO HS Urinary Issue 07/31/23
polyethylene glycol 3350 17 gram oral powder packet (HealthyLax) 17 g PO DAILY Constipation #30 ea 08/08/23
docusate sodium 100 mg capsule (Colace) 100 mg PO DAILY 10/29/23
famotidine-Ca carb-mag hydrox 10 mg-800 mg-165 mg chewable tablet (Pepcid Complete) 1 tab PO HS 10/29/23
pantoprazole 40 mg tablet,delayed release 40 mg PO DAILY Gastrointestinal issue 10/29/23
acetaminophen 325 mg tablet 650 mg (2 x 325 mg) PO Q4HPRN PRN mild pain #1 tab 11/06/23
ibuprofen 200 mg tablet 400 - 600 mg (2 - 3 x 200 mg) PO Q6HPRN PRN moderate pain #1 tab 11/06/23
oxycodone 5 mg tablet 5 mg PO Q4HPRN PRN breakthrough/severe pain #10 tabs 11/06/23
Home Medication Changes
Pending Results: No
[2023-11-07 08:32] VITALS: BP 117/61
[2023-11-07] MEDS: TORADOL 10 MG IV (09:22)
--- NOTE | 2023-11-07 09:49 | CM ---
Reviewed the chart notes and spoke with the patient at the bedside. The patient resides alone in a two story home with two steps to enter. The patient's master bedroom is on the first level. The patient reports no DME/VN/SNF in the past. The
patient confirmed his pharmacy of choice is [facility]. The patient's daughter will be staying with the patient until the end of October. CM continues to be available to patient/family and is monitoring medical plan for needs at
discharge.
Plan: Discharge to home with no needs. Patient's daughter will provide transportation home.
== END 2023-11-07 11:34 | disposition home or self-care (01) ==
LOC: SDS 06:26
PROVIDERS: ATTENDING PHYSICIAN Surgery
DX: K40.90 Unilateral inguinal hernia, without obstruction or gangrene, not specified as recurrent (principal)
CPT/HCPCS: 49650; C1781

== ENCOUNTER 2023-12-17 06:23 | Day surgery (SDC) | payer MEDICARE, OTHER, SELFPAY ==
[2023-12-17 10:47] VITALS: BMI 42.5
[2023-12-17 11:03] VITALS: BMI 42.5
[2023-12-17 11:05] VITALS: BP 130/61
[2023-12-17 12:46] VITALS: BP 112/72
[2023-12-17 13:00] VITALS: BP 113/68
[2023-12-17 13:15] VITALS: BP 113/62
== END 2023-12-17 13:46 | disposition home or self-care (01) ==
LOC: SDS 06:23
PROVIDERS: Internal Medicine; ATTENDING PHYSICIAN Internal Medicine Gastroenterology
PROC: 0DB98ZX Excision of Duodenum, Via Natural or Artificial Opening Endoscopic, Diagnostic (ICD-10-PCS; 2023-12-17)
DX: K22.70 Barrett's esophagus without dysplasia (principal); K31.89 Other diseases of stomach and duodenum
CPT/HCPCS: 43239; 43259; 88305